=== PATIENT | female | born 1975 | race Caucasian/White ===

== ENCOUNTER 2017-09-21 10:00 | Outpatient (RCR) | payer MEDICAID, SELFPAY ==
--- NOTE | 2017-08-29 11:08 | HP.PTEVAL ---
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 Date of Evaluation: 08/29/17 Physical Therapist: Jr Aden, PT, - Visit Plan Frequency: 2-3x /Week Duration: 4-6 Weeks Plan: Trial C-Tx next Rx. Postural EDU, c/s retaction ex's, DTR, scap stab ex's, UBE, and HEP - Subjective Subjective: Pt reports she has had severe pain in between her shoulder blades for a couple months now. Pt reports she was lifting her mattress a couple months ago when it fell on her. Pt reports she didn't have immediate pain from that, but believes that incident may be what has lead her to having this pain. Pt reports she is raising her 4 y/o nephew, and has a hard time picking him up as a result. Pt is R hand dominant. Pt reports her pain is often times more sore in the morning. Pt also notes reaching for objects causes her to have pain. Nothing helps to alleviate pain except for Ibuprophen. No PMHx of T/S pain. No recent Dx tests at this time. No sleep diff secondary to pain. 7/10 pain at rest, 9/10 at worst (reaching for objects) - Pain Upper T/S Pain Intensity (Out of 10): 7 Pain Intensity Range: 9 - Objective Neuro: B UE sensation is WNL to light touch. B bicepital reflex= 2/3. Palpation: Pt has sig guarding in her C/S. No pain in T/S. ROM: C/S ROM is WNL except for retraction and ext which are severely limited. MMT: B C7 myotome 3/5. all other B UE MMT 5/5 throughout. Repeated movements C/S: RPIS 10x3 NE, RRIS 10x3 provokes centralized pain. Special testing: Pos c/s compression test and distraction test - Goals Goal 1:: Decrease C/S and upper back pain x 50% to aid with IADL's Goal Time Frame: 4-6 Weeks Goal 2:: Pt will demonstrate both verbally and physically proper posture to aid with preventing future neck and upper back pain Goal Time Frame: 4-6 Weeks Goal 3:: Increase C/S ext and retraction ROM to WNL to aid with restoring proper posture. Goal Time Frame: 4-6 Weeks Goal 4:: I with HEP Goal Time Frame: 4-6 Weeks - Rehabilitation Potential Physical Therapy Diagnosis: Pt has neck pain, upper back pain, and limited c/s ROM secondary to c/s disc derrangement Rehabilitation Potential: Good - Anticipated Interventions Patient/Client Instruction: Educate patient on: Condition, Plan of Care For the Purpose of:: To improve self management Therapeutic Exercise to Include: Strength training, Body mechanics, Postural training, Active ROM, Pam Exercises, Scapular Strength/Stabilization For the Purpose of:: To decrease pain, To increase ROM, To improve muscle performance and motor function Manual Therapy Techniques to Include: Soft tissue mobilization For the Purpose of:: To decrease pain Intermittent cervical traction: Yes For the Purpose of:: To decrease pain Thank you for the opportunity to evaluate your patient. For Medicare and Medicare HMO plans, please review the plan of care and approve it. It will need to be FAXED BACK to us at [phone] for Medicare purposes. Please let me know if there are questions or concerns regarding this plan of care. Physician Signature: Date:
--- NOTE | 2017-09-21 10:22 | HP.PTDCSUM_ITS ---
HP - PT D/C Summary It has been my pleasure to treat JIMY THEODORE under orders from [facility] Power NP.JWITME for the diagnosis of Upper back pain for a total of 7 visit(s) . Discharge Date: Please see the following information for a summary of their discharge status. - Subjective Subjective: I feel great today, my pain is almost gone - Pain Upper T/S Pain Intensity (Out of 10): 1 - Objective Objective/Function: Pt now has full ROM in C/S. No pain after Rx. Pt I with postural awareness. Rx goals achieved - Goals Goal 1:: Decrease C/S and upper back pain x 50% to aid with IADL's Goal 2:: Pt will demonstrate both verbally and physically proper posture to aid with preventing future neck and upper back pain Goal 3:: Increase C/S ext and retraction ROM to WNL to aid with restoring proper posture. Goal 4:: I with HEP - Plan Plan: Discharge - D/C Information If there are questions or concerns regarding this patient's physical therapy, please feel free to call me at [phone]. Thank you for the referral of this patient. Sincerely, Jr Aden, PT,
== END 2017-09-21 10:52 | disposition home or self-care (01) ==
LOC: PT 10:00
PROVIDERS: Family Provider Family Medicine; PCP Family Medicine; Visit Provider Nurse Practitioner Primary Care
DX: M54.89 Other dorsalgia (principal)
CPT/HCPCS: 97012; 97161

== ENCOUNTER → 2017-11-28 12:28 | Outpatient (CLI) | payer MEDICAID, SELFPAY ==
--- NOTE | 2017-11-28 12:28 | DT_ITS ---
This patient was seen during an EMR downtime November 28, 2017 - December 05, 2017. This patient may have a combination of paper and electronic documentation or all paper documentation. All documentation is viewable within the e-chart portion of [facility] for each patient visit.
--- NOTE | 2017-11-28 12:50 | BI_ITS ---
MAMMOGRAPHY - BILATERAL SCREENING REASON FOR EXAM: Female, 42 years old. Routine annual screening examination. PERTINENT HISTORY: NO FAM HX RT NEEDLE BX 2016 TECHNIQUE: Digital bilateral breast krzysztof (3D mammographic acquisition) in the CC and MLO projections. 2-D mediolateral oblique (MLO) and craniocaudad (CC) views of both breasts were obtained. CAD: Full Field Digital Mammography with Computer Added Detection was performed. COMPARISON: 05/04/2016 and 10/21/2015 and April 11, 2015 FINDINGS: Breast Composition: The breasts are heterogeneously dense, which may obscure small masses. There are no dominant masses or suspicious calcifications. No other significant abnormalities are identified. BI/SCREENING MAMM (CAD), BILAT IMPRESSION: Stable bilateral screening mammogram. Yearly follow-up mammogram recommended. (A) ASSESSMENT CATEGORY: BIRADS Category 2: Benign. A letter regarding these results will be sent to the patient by the facility within 30 days. Approximately 10% of breast cancers are not detected by mammography. A normal mammogram should not delay biopsy of a clinically suspicious abnormality. [id number] Electronically Signed: Eran Jj MD at 12:13 EDT Tel , Service support ,
== END ==
PROVIDERS: Family Provider Family Medicine; PCP Family Medicine; Visit Provider Obstetrics & Gynecology
DX: Z12.31 Encounter for screening mammogram for malignant neoplasm of breast (principal)
CPT/HCPCS: 77062; 77063; 77067; G0279

== ENCOUNTER 2019-04-03 17:15 | Emergency (ER) | payer MEDICAID, SELFPAY ==
[2019-04-03 17:17] VITALS: BP 200/99; PULSE 111; RESP 16; TEMP 36.4; O2SAT 98; BMI 39.0
[2019-04-03 18:19] LABS: Amphetamine Urine VISTA NEGATIVE (<1000 ng/mL); Barbiturate Urine VISTA NEGATIVE (< 200 ng/mL); Benzodiazepine Urine VISTA NEGATIVE (< 200 ng/mL); Cocaine Urine VISTA NEGATIVE (< 300 ng/mL); Ecstacy Urine VISTA NEGATIVE (< 500 ng/mL); Methadone Urine VISTA NEGATIVE (< 300 ng/mL); PCP Urine VISTA NEGATIVE (< 25 ng/mL); THC Urine VISTA NEGATIVE (< 50 ng/mL); Vista UDS pH Range 5
[2019-04-03 19:00] VITALS: RESP 17
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
[2019-04-03 19:10] LABS: Absolute Lymphocyte Count 1.33 X10^3/uL (0.83-4.51); Absolute Neutrophil Count 4.5 X10^3/uL (2.0-7.7); Basophil# 0.05 X10^3/uL; Basophil% 0.8 % (0-1); Eosinophils% 1.5 % (0-5); Hematocrit 38.6 % (37-47); Hemoglobin 13.5 g/dL (12.0-15.0); Lymphocyte # 1.33 X10^3/ul (4.0); Lymphocyte % 20.5 % (19-41); Mean Corpuscular Hgb 29.9 pg (27.0-32.0); Mean Corpuscular Volume 85.4 fL (81-99); Mean Platelet Vol. 11.4 fl (6.2-12.0); Monocyte# 0.45 X10^3/uL; Monocyte% 6.9 % (0-10); NRBC Flagged by Analyzer 0 % (0-5); Neutrophil # 4.52 X10^3/uL (2.7-7.7); Neutrophil % 69.5 % (47-70); Platelet Count 159 K/mm3 (150-450); RBC Distribution Width CV 12.7 % (11.6-14.6); Red Blood Count 4.52 M/mm3 (4.2-5.4); White Blood Count 6.5 K/mm3 (4.4-11.0)
[2019-04-03] MEDS: Acetaminophen 500 MG Tablet 1000 MG PO (19:12)
[2019-04-03 19:20] LABS: ALB/GLOB Ratio 1.2 RATIO (0.9-2.4); AST(SGOT) 14 U/L (15-37); Alanine Aminotransfer ALT/SGPT 32 U/L (13-56); Albumin, Serum 4.2 g/dL (3.2-5.0); Alkaline Phosphatase 113 U/L (45-117); Anion Gap 8 (5-15); BUN 16 mg/dL (7-18); Calcium,Total 9.3 mg/dL (8.5-10.1); Chloride 104 mmol/L (98-107); EST Glomerular Filtration Rate 83 mL/min (>60); Est Glom Filt Rate - Afr Amer 100 mL/min (>60); Estimated Creatinine Clearance 64.46 ml/min; Globulin 3.5 g/dL (2.2-4.2); Glucose 161 mg/dL (74-106); Potassium 3.7 mmol/L (3.5-5.1); Protein, Total 7.7 g/dL (6.4-8.2); Sodium Level 137 mmol/L (136-145)
[2019-04-03 19:21] LABS: Internal QC Validated? YES +Cl - CLEAR BKGD; Pregnancy, Serum, hCG Quali. NEGATIVE Negative
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
[2019-04-03 19:35] VITALS: BP 165/106; PULSE 98; RESP 16; O2SAT 99
--- NOTE | 2019-04-03 19:59 | CM.ED ---
Social Work Patient medically cleared per Dr. Young. Telephone call to [facility], they do not accept patient insurance Telephone call to [facility]. They have openings and they do accept patient insurance. Referral faxed. Pending approval. Lang ELIZABETH, MARY
[2019-04-03 20:00] VITALS: RESP 16
--- NOTE | 2019-04-03 20:40 | CM.ED ---
Social Work Telephone call to [facility], Dior. This social security assessor updating Dior on concerns of patient being in the home with 6 year old nephew when patient was thinking about completing suicide and hoping that patient would . Dior updated that patient nephew is currently at patient friends, Kats as well as the address and contact information for Heather. Rader stating that there are no open cases at this time and that the report will go to be reviewed. Lang ELIZABETH, MARY
--- NOTE | 2019-04-03 20:44 | CM.ED ---
Social Work Telephone call from [facility]. Patient has been accepted. Nurse to nurse report: [phone]. Unit: Adult unit 1700. Accepted by Dr. Crum. Update patient and medical team. All agreeable with plan. [place] slip faxed. Lang lOea BOX SEALING MACHINE OPERATOR, MARY
[2019-04-03 21:00] VITALS: RESP 17
--- NOTE | 2019-04-03 21:22 | ED.RN ---
DISPO CHARTED BY CHRISTI NOT ABAILY.
== END 2019-04-03 22:02 ==
PROVIDERS: Emergency Provider Emergency Medicine
DX: R45.851 Suicidal ideations (principal); I10 Essential (primary) hypertension; S50.812A Abrasion of left forearm, initial encounter; X78.9XXA Intentional self-harm by unspecified sharp object, initial encounter; Y93.9 Activity, unspecified; Y92.9 Unspecified place or not applicable; F32.9 Major depressive disorder, single episode, unspecified; F41.9 Anxiety disorder, unspecified; E11.9 Type 2 diabetes mellitus without complications; E78.00 Pure hypercholesterolemia, unspecified; Z79.84 Long term (current) use of oral hypoglycemic drugs; Z79.899 Other long term (current) drug therapy; Z87.891 Personal history of nicotine dependence
CPT/HCPCS: 80053; 80307; 80320; 84703; 85025; 99284; G0480

== ENCOUNTER → 2019-12-06 09:13 | Outpatient (CLI) | payer MEDICAID, SELFPAY ==
--- NOTE | 2019-12-06 14:15 | PFTCOMP_ITS ---
COMPLETE PULMONARY FUNCTION TEST INTERPRETATION Brief HPI: Patient is a 44 year old female, currently under the care of Dr. Rolon, who presents to [facility] for complete pulmonary function tests secondary to diagnosis of wheezing. Respiratory therapist reports good effort and reproducible results. Interpretation: Forced expiration spirometry shows no large airways obstructive ventilatory defect with an FEV1 of 81% predicted. There is no significant bronchodilator response by strict ATS criteria. Spirograms are of good quality and plateau normally. The respiratory flow volume loop shows a normal pattern. Lung volumes by body plethysmography show a slightly reduced total lung capacity at 3.23 L, 77% predicted. All other lung volumes are reduced symmetrically. Diffusion capacity by carbon monoxide is slightly reduced at 73% predicted. The airway resistance is slightly elevated. No previous pulmonary function tests were available for review. Impression: Mild restrictive ventilatory defect with a symmetric reduction diffusion c apacity.
== END ==
PROVIDERS: PCP Nurse Practitioner Family; Referring Provider Nurse Practitioner Family; Visit Provider Nurse Practitioner Family
DX: J20.9 Acute bronchitis, unspecified (principal); R06.02 Shortness of breath; R06.2 Wheezing
CPT/HCPCS: 94060; 94726; 94729

== ENCOUNTER → 2020-02-26 14:47 | Outpatient (CLI) | payer MEDICAID, SELFPAY ==
[2020-01-21 08:48] VITALS: BMI 39.0
--- NOTE | 2020-02-26 14:47 | BI_ITS ---
MAMMOGRAPHY - BILATERAL DIAGNOSTIC REASON FOR EXAM: Female, 44 years old. History of bilateral breast nodules seen on the recent CT scan examination. Remote right needle breast biopsy. PERTINENT HISTORY: Non-contributory. TECHNIQUE: Digital bilateral breast krzysztof (3D mammographic acquisition) in the CC and MLO projections. 2-D mediolateral oblique (MLO) and craniocaudad (CC) views of both breasts were obtained. CAD: Full Field Digital Mammography with Computer Added Detection was performed. COMPARISON: Comparison is made with prior examination dated 11/28/2017. FINDINGS: Breast Composition: There are scattered areas of fibroglandular density. There are no dominant masses or suspicious calcifications. Stable 6.3 mm well-defined nodule in the upper axillary region of the right breast most likely representing a small lymph node. Stable small bilateral benign appearing axillary lymph nodes. Tissue markers are seen in both breasts from prior biopsy. No other significant abnormalities are identified. There has been no significant change since the prior study. BI/DIAG MAMM W/CAD, BILAT IMPRESSION: Stable bilateral diagnostic mammogram. One year follow-up recommended. (A) ASSESSMENT CATEGORY: BIRADS Category 2: Benign. A letter regarding these results will be sent to the patient by the facility within 30 days. Approximately 10% of breast cancers are not detected by mammography. A normal mammogram should not delay biopsy of a clinically suspicious abnormality. Electronically Signed: Shaji Payne, at 8:44 EDT , Service support ,
--- NOTE | 2020-02-26 16:11 | US_ITS ---
STUDY: ULTRASOUND BREAST - RIGHT REASON FOR EXAM: Female, 44 years old. History of bilateral breast nodules. TECHNIQUE: Axial and longitudinal images of the RIGHT breast were performed with a high resolution ultrasound transducer. # OF IMAGES: 82 COMPARISON: Comparison is made with prior mammogram done earlier today. FINDINGS: RIGHT Breast: There is a 1 cm x 0.9 cm x 0.5 cm well-defined hypoechoic nodule at the 5 o''clock position of the breast at 3 cm from nipple. This most likely represents a fibroadenoma. Tissue diagnosis is recommended. IMPRESSION: There is a 1 cm x 0.9 cm x 0.5 cm well-defined hypoechoic nodule at the 5 o''clock position of the breast at 3 cm from nipple. Tissue diagnosis is recommended. ASSESSMENT CATEGORY: BIRADS Category 4: Suspicious - Biopsy Should Be Considered. A letter regarding these results will be sent to the patient by the facility within 30 days. Electronically Signed: Shaji Payne, at 9:15 EDT , Service support , STUDY: ULTRASOUND BREAST - LEFT REASON FOR EXAM: Female, 44 years old. Bilateral breast nodules. TECHNIQUE: Axial and longitudinal images of the LEFT breast were performed with a high resolution ultrasound transducer. # OF IMAGES: 82 COMPARISON: Comparison is made with prior examination done earlier in the day. FINDINGS: LEFT Breast: There is a 5 mm x 7 mm x 5 mm well-defined echogenic nodule in the superficial aspect of the breast at the 12 o''clock position of the breast at 3 cm from the nipple. This most likely represents a lipoma. US/Breast Limited Unilateral IMPRESSION: 5 mm x 7 mm x 5 mm well-defined echogenic nodule in the superficial aspect of the breast at the 12 o''clock position at 3 cm from nipple. This most likely represents a lipoma. ASSESSMENT CATEGORY: BIRADS Category 2: Benign. A letter regarding these results will be sent to the patient by the facility within 30 days. Electronically Signed: Shaji Payne, at 9:17 EDT , Service support ,
== END ==
PROVIDERS: PCP Nurse Practitioner Family; Referring Provider Obstetrics & Gynecology; Visit Provider Nurse Practitioner Family
DX: R92.2 Inconclusive mammogram (principal)
CPT/HCPCS: 76642; 77062; 77066; G0279

== ENCOUNTER → 2020-03-07 09:51 | Outpatient (CLI) | payer MEDICAID, SELFPAY ==
[2020-03-04 09:45] VITALS: BMI 39.0
--- NOTE | 2020-03-07 09:54 | US_ITS ---
STUDY: ULTRASOUND BREAST - RIGHT REASON FOR EXAM: Female, 44 years old. Right breast biopsy. TECHNIQUE: Axial and longitudinal images of the RIGHT breast were performed with a high resolution ultrasound transducer. # OF IMAGES: 19 COMPARISON: Comparison is made with prior ultrasound of the right breast dated 02/26/2020. FINDINGS: RIGHT Breast: The surgeon performed core biopsies of the 1.1 cm x 1.1 cm x 0.5 cm hypoechoic nodular density at the 5 o''clock position of the breast at 3 cm from nipple. US/US Breast Biopsy 1st Lesion IMPRESSION: Ultrasound guided core biopsy of the 1.1 cm x 1.1 cm x 0.5 cm hypoechoic solid nodule at the 5 o''clock position of the breast at 3 cm from the nipple. ASSESSMENT CATEGORY: BIRADS Category 2: Benign. A letter regarding these results will be sent to the patient by the facility within 30 days. Electronically Signed: Shaji Payne, at 11:10 EDT , Service support ,
--- NOTE | 2020-03-07 10:30 | BRBX_PTH ---
PATIENT: JIMY THEODORE LOC: OPUS U#:[id number] AGE/SX: 49/F ROOM: RE03/07/[address]: Dr. Corby Dickson MD : 1975 BED: DIS: SPEC #: [id number] RECD: 03/07/20 11:06 STATUS: LOU ARMANI #: [id number] ALICIA: 03/07/20 10:[address]: Corby Dickson DEPT: SURGICAL PATHOLOGY RECD BY: Tesfaye Pal ENTERED: 03/07/20 12:52 SP TYPE: BREAST BX OTHR DR: George Hopper, TICKETING CLERK-C Tissues: Right breast, NOS Procedures: Surgery Specimen Level IV HEADER OPERATION: Ultrasound-guided biopsy, right breast PRE-OP DIAGNOSIS: Right breast nodule TISSUE SUBMITTED: Right breast nodule ISCHEMIC TIME: 1 minute FIXATION TIME: 57 hours MICROSCOPIC DIAGNOSIS Right breast nodule, ultrasound-guided needle core biopsy: Fibroadenoma. Mild fibrocystic change. AM:liane 03/10/20 MICROSCOPIC DESCRIPTION Slides are reviewed. GROSS DESCRIPTION Received in fixative is one container labeled with the patient name and designated right breast. The specimen consists of multiple elongated fragments of malin-yellow fibroadipose tissue that in aggregate measure 2 x 1.5 x 0.1 cm. The entire specimen is submitted in one cassette. / SJ:liane 03/07/20 TC:5 CPT: 91014
--- NOTE | 2020-03-07 10:35 | BI_ITS ---
MAMMOGRAPHY - UNILATERAL DIAGNOSTIC: RIGHT BREAST REASON FOR EXAM: Female, 44 years old. Tissue marker placement following ultrasound-guided breast biopsy. PERTINENT HISTORY: Non-contributory. TECHNIQUE: Digital unilateral breast krzysztof (3D mammographic acquisition) in the CC and MLO projections. 2-D mediolateral oblique (MLO) and craniocaudad (CC) views of both breasts were obtained. CAD: Full Field Digital Mammography with Computer Added Detection was performed. COMPARISON: Comparison is made with prior examination dated 02/26/2020. FINDINGS: Breast Composition: There are scattered areas of fibroglandular density. A new tissue clip marker is seen in the central slightly medial aspect of the right breast. No other significant abnormalities are identified. BI/DIAG MAMM W/CAD, UNILAT IMPRESSION: Status post right ultrasound-guided breast biopsy with a tissue clip marker placement in the deep central slightly medial aspect of the right breast. ASSESSMENT CATEGORY: BIRADS Category 2: Benign. A letter regarding these results will be sent to the patient by the facility within 30 days. Approximately 10% of breast cancers are not detected by mammography. A normal mammogram should not delay biopsy of a clinically suspicious abnormality. Electronically Signed: Shaji Payne, at 11:56 EDT , Service support ,
--- NOTE | 2020-03-07 12:39 | PCM.OPRPT ---
Problem List (1) Abnormal mammogram of right breast Status: Acute Report of Operation Date of Procedure: 03/07/20 Pre-Operative Diagnosis: Abnormal mammogram to right breast Post-Operative Diagnosis: Same Surgery/Procedure Performed:: Ultrasound-guided handheld mammotome breast biopsy right breast Type of Anesthesia:: Local Description of Procedure: Patient was brought into the ultrasound room. Ultrasound of the right breast revealed the lesion in question. The area was of the lower half of the breast. I marked the breast cleaned the breast off with chlorhexidine solution. 1% lidocaine plain was injected. Local was injected posterior to the lesion. A skin mio was made. Hand-held needle was then directed posterior to the lesion. Numerous biopsies were obtained under ultrasound guidance. Under ultrasound guidance a small titanium clip was placed. Steri-Strips were applied sterile dressings were applied and the patient tolerated the procedure well. - Admit VTE Documentation VTE Present on Admission: No VTE Mechan Device Prophylaxis: None VTE Pharm Prophylaxis ordered?: No Reason prophylaxis not ordered:: Treatment Not Indicated [id number]: [id number] Bx breast 1st lesion us imag
== END ==
PROVIDERS: PCP Nurse Practitioner Family; Referring Provider Surgery; Visit Provider Surgery
DX: D24.1 Benign neoplasm of right breast (principal); N60.11 Diffuse cystic mastopathy of right breast
CPT/HCPCS: 19083; 77065; 88305

== ENCOUNTER 2023-06-27 14:26 | Emergency (ER) | payer MEDICARE, MEDICAID, SELFPAY ==
[2023-06-27 14:26] VITALS: BP 171/80; PULSE 85; RESP 16; TEMP 36.6; O2SAT 96; BMI 41.6
--- NOTE | 2023-06-27 14:38 | EDS_ITS ---
HPI History of Present Illness Chief Complaint: Cough Informant: patient Onset/Context/Timing Onset: Days (8 days) Narrative Narrative: Patient presents secondary to cough since . She states she initially had sinus congestion that is now improved. She has not had fever or chills. She has had some intermittent wheezing and has been using her inhalers more than normal. She was exposed to her father who was diagnosed with COVID. She took a home COVID test 2 days ago that was negative. [facility] Medical History (Updated 06/27/23 @ 15:[address] Cassandra Benoit MD) Anxiety and depression COPD (chronic obstructive pulmonary disease) Diabetes GERD (gastroesophageal reflux disease) History of hypertension Home Medications prazosin 1 mg capsule 5 mg PO DAILY 01/27/17 [History Last Taken Unknown] amitriptyline 25 mg tablet 25 mg PO QHS 04/03/19 [History Last Taken Unknown] buspirone 7.5 mg tablet 7.5 mg PO TID 04/03/19 [History Last Taken Unknown] ergocalciferol (vitamin D2) 1,250 mcg (50,000 unit) capsule 1 cap PO QWEEK 04/03/19 [History Last Taken Unknown] lovastatin 20 mg tablet 20 mg PO DAILY 04/03/19 [History Last Taken Unknown] metformin 500 mg tablet,extended release 24 hr 500 mg PO DAILY 04/03/19 [History Last Taken Unknown] tizanidine 4 mg tablet 4 mg PO TID PRN Muscle Spasm 04/03/19 [History Last Taken Unknown] venlafaxine 150 mg capsule,extended release 24 hr 150 mg PO DAILY 04/03/19 [History Last Taken Unknown] insulin glargine 100 unit/mL (3 mL) subcutaneous pen (Lantus Solostar U-100 Insulin) 50 unit subcut QPM 01/21/20 [History Last Taken Unknown] valsartan 80 mg-hydrochlorothiazide 12.5 mg tablet 1 tab PO DAILY 01/21/20 [History Last Taken Unknown] Allergy/AdvReac Type Severity Reaction Status Date / Time Iodinated Contrast Media Allergy Severe difficulty Verified 06/27/23 14:27 [CONTRASTS] breathing Family History Mother Heart disease Myocardial infarction Hypertension Aunt Colon cancer Uncle Cancer lung Surgical History H/O bilateral oophorectomy History of bilateral breast biopsy S/P LINDA (total abdominal hysterectomy) Social History Smoking Status: Former smoker alcohol intake: never substance use type: does not use caffeine: Yes what type of physical activity do you participate in: walking seatbelt use: sometimes do you feel safe at home: Yes additional social history: - Unemployed ROS ROS ED Constitutional Constitutional ED: Denies chills or fever(s) Eyes Eyes: Denies discharge from eye(s) ENT ENT ED: Denies discharge from eye(s), rhinorrhea or sore throat Cardiovascular Cardiovascular: Denies chest pain or palpitations Respiratory/Chest Respiratory/Chest: Reports cough; Denies dyspnea Gastrointestinal Gastrointestinal: Denies abdominal pain, diarrhea, nausea or vomiting Genitourinary Genitourinary ED: Denies dysuria Musculoskeletal Musculoskeletal: Denies back pain or extremity pain Integumentary Denies Abrasions or rash Neurologic Neurologic: Denies headache(s) or weakness Psychiatric Psychiatric: Denies anxiety or depression Allergic/Immunologic Allergic/Immunologic ED: Denies lip swelling or urticaria EXAM Physical Exam Const Vital Signs: 06/27/23 14:26 06/27/23 15:00 06/27/23 15:26 Temperature 97.9 F Temperature Source Temporal Pulse Rate 85 Respiratory Rate 16 16 Respiratory Effort Normal Non-Labored Respiratory Pattern Normal Blood Pressure 171/80 H Blood Pressure Mean 110 Pulse Ox 96 Oxygen Delivery Method Room Air Positive well nourished and well developed General Appearance ED: well developed Eyes EOMs intact bilaterally Chest Wall inspection of chest normal and palpation of chest normal Resp normal respiratory effort and clear to auscultation bilaterally Cardio regular rate and regular rhythm GI non-tender Palpation: soft Extremity normal to inspection Neuro oriented x3 and no sensory deficits noted Motor Exam: strength 5/5 throughout Psych mental status grossly normal Skin no rashes or lesions noted MDM MDM MDM Narrative Medical decision making narrative: Given the patient's history of COPD with prolonged cough I will obtain chest x- ray to evaluate for possible infiltrate. Swab for COVID and influenza also sent. Patient swab for COVID and influenza is negative. Two-view chest x-ray per my interpretation reveals no evidence of focal infiltrate. Radiology interpretation reviewed and agrees. Patient did have known exposure to COVID and her sister who is also here being seen does test positive today. I think she likely did have COVID but is already cleared her infection quicker as she has had her symptoms longer. She is doing well and is not hypoxic on room air. Her chest x-ray is clear. She will continue supportive care. Radiography Diagnostic Testing: Clinical Impression(s) from Imaging Studies Chest X-Ray 06/27/23 14:50 IMPRESSION: Normal x-ray examination of the chest. Electronically Signed: Donte Dangelo MD at 15:11 EST , Discharge Plan Triage Chief Complaint: Cough ED Provider: Cassandra Benoit Dx/Rx/DC Orders Clinical Impression: Viral syndrome Instructions: ED Viral Syndrome (Adult) Prescriptions: No Action valsartan-hydrochlorothiazide 80-12.5 mg tablet 1 tab PO DAILY Lantus Solostar U-100 Insulin 100 unit/mL (3 mL) insulin pen 50 unit SC QPM prazosin 1 MG capsule 5 mg PO DAILY venlafaxine 150 MG capsule,extended release 24hr 150 mg PO DAILY amitriptyline 25 MG tablet 25 mg PO QHS Patient Comments: take 1 tablet by mouth at bedtime buspirone 7.5 MG tablet 7.5 mg PO TID Patient Comments: take 1 tablet by mouth three times a day ergocalciferol (vitamin D2) 50,000 UNIT capsule 1 cap PO QWEEK Patient Comments: take 1 capsule by mouth every week lovastatin 20 MG tablet 20 mg PO DAILY metformin 500 MG tablet extended release 24 hr 500 mg PO DAILY Patient Comments: take 1 tablet by mouth once daily tizanidine 4 MG tablet 4 mg PO TID PRN (Reason: Muscle Spasm) Patient Comments: take 1 tablet by mouth three times a day Primary Care Provider: George Hopper NP Referrals: George Hopper NP, [employer] [facility] [Primary Care Provider] - 1-2 Weeks Disposition Disposition: Home, Self Care
--- NOTE | 2023-06-27 14:50 | RAD_ITS ---
STUDY: X-RAY CHEST REASON FOR EXAM: Female, 47 years old. Cough. COPD. TECHNIQUE: Frontal and lateral views of the chest. COMPARISON: None. FINDINGS: The lungs are clear and expanded. There is no demonstrated pleural abnormality. Normal size heart. Normal mediastinum and brenton. Normal visualized pulmonary arteries. Normal visualized aortic arch and descending thoracic aorta. Normal visualized thoracic spine. Normal visualized ribs, clavicles, and shoulders. No abnormality of the visualized soft tissue structures of the upper abdomen. RAD/Chest PA and Lateral IMPRESSION: Normal x-ray examination of the chest. Electronically Signed: Donte Dangelo MD at 15:11 EST ,
[2023-06-27 15:00] VITALS: RESP 16
--- OUTSIDE RECORDS SUMMARY | 2023-06-27 15:12 | XMS RPT_ITS | CCD ---
Author Name Unknown Address [address] [place] [address] Organization [facility] Care Team Providers Care Carpentry Specialist Name Role Phone Bernadine Nicholas MD Unavailable [phone] Olivia Rick Unavailable Unavailable Matteo Pena Unavailable Unavailable MISCELLANEOUS DOCTOR Unavailable Unavailable Unavailable Primary Care Provider Aarti e DIANA BLUE LINE TRIMMER - FURNITURE RENTAL CONSULTANT, NIGHAT Lopez Primary Care Phys ician Radha PT, Kate Unavailable Unavailable DIANA BLUE LINE TRIMMER - FURNITURE RENTAL CONSULTANT, NIGHAT Lopez Primary Care U navailable FROMMELT DO, BANDAR Attending Unavailable GO BLUE LINE TRIMMER-FURNITURE RENTAL CONSULTANT, ANTONY Attending Unavaila ble DIANA BLUE LINE TRIMMER - FURNITURE RENTAL CONSULTANT, NIGHAT Lopez Primary Care U navailable DIANA BLUE LINE TRIMMER - FURNITURE RENTAL CONSULTANT, NIGHAT Lopez Attending U navailable DIANA BLUE LINE TRIMMER - FURNITURE RENTAL CONSULTANT, NIGHAT Lopez Primary Care U navailable GO BLUE LINE TRIMMER-FURNITURE RENTAL CONSULTANT, ANTONY Attending Unavaila ble DIANA BLUE LINE TRIMMER - FURNITURE RENTAL CONSULTANT, NIGHAT Lopez Primary Care U navailable DIANA BLUE LINE TRIMMER - FURNITURE RENTAL CONSULTANT, NIGHAT Lopez Primary Care U navailable GO BLUE LINE TRIMMER-FURNITURE RENTAL CONSULTANT, ANTONY Attending Unavaila ble GO BLUE LINE TRIMMER-FURNITURE RENTAL CONSULTANT, ANTONY Attending Unavaila ble DIANA BLUE LINE TRIMMER - FURNITURE RENTAL CONSULTANT, NIGHAT Lopez Primary Care U navailable DIANA BLUE LINE TRIMMER - FURNITURE RENTAL CONSULTANT, NIGHAT Lopez Primary Care U navailable GO BLUE LINE TRIMMER-FURNITURE RENTAL CONSULTANT, ANTONY Attending Unavaila ble DIANA BLUE LINE TRIMMER - FURNITURE RENTAL CONSULTANT, NIGHAT Lopez Attending U navailable DIANA BLUE LINE TRIMMER - FURNITURE RENTAL CONSULTANT, NIGHAT Lopez Primary Care U navailable DIANA BLUE LINE TRIMMER - FURNITURE RENTAL CONSULTANT, NIGHAT Lopez Primary Care U navailable DIANA BLUE LINE TRIMMER - FURNITURE RENTAL CONSULTANT, NIGHAT Lopez Attending U navailable DIANA BLUE LINE TRIMMER - FURNITURE RENTAL CONSULTANT, NIGHAT Lopez Primary Care U navailable DIANA BLUE LINE TRIMMER - FURNITURE RENTAL CONSULTANT, NIGHAT D Attending U NIGHAT Rollins APRN, CNP Primary Care U NIGHAT Rollins APRN, CNP Attending U NIGHAT Rollins APRN, CNP Primary Care U JUAQUIN Guadarrama DO Attending Unavailable Allergies Allergy Classification Reported Allergen(s) Allergy Type Date of Onset Reaction(s) Facility (4 sources) Contrast media drug allergy 05-20-20 17 Lung filled uo with fluid [facility] (1 source) Shellfish Propensity to adverse reactions to drug 08-07-19 13 Anaphylaxis [place] (1 source) Iodides Propensity to adverse reactions to drug 02-05-20 20 Anaphylaxis [place] (17 sources) Contrast dye 1; Translations: [iodinated radiocontrast agents] Drug allergy Lungs fill up with fluid [facility] Medications Current Medications Medication Drug Class(es) Dates Sig (Normalized) Sig (Original) acetaminophen 500 mg oral tablet (2 sources) Start: 06-08-2021 End: 06-18-2021 Tylenol Extra Strength 500 mg oral tablet Dose : 1,000 mg = 2 tab(s), Oral, q6hr, PRN FEVER, X 10 day(s), # 80 tab(s), 0 Refill(s), 06/18/21 15:22:00 EST, [id number], 150, cm, 06/08/21 14:43:00 EST, Height, kg, 06/08/21 14:43:00 EST, Dosing Weight Start Date: 06/08/21 Stop Date: 06/18/21 Status: Ordered Completed/Discontinued Medications Medication Drug Class(es) Dates Sig (Normalized) Sig (Original) [id number] 200 actuat albuterol 0.09 mg/actuat metered dose inhaler (18 sources) beta2-Adrenergic Agonist Start: 05-13-2022 End: 05-10-2023 take 2 puff(s) by inhalation every six hours as needed ProAir HFA MDI (90 mcg/inh) inhalation aerosol 2 puff(s), Inhalation, q6hr, PRN, # 1 EA, 5 Refill(s), Pharmacy: [facility] - [id number], COPD - Chronic obstructive pulmonary disease, 153, cm, 11/11/22 14:54:00 EDT, Height, kg, 11/11/22 14:54:00 EDT, Dosing Weight Start Date: 11/11/22 Stop Date: 05/10/23 Status: Ordered Problems Active Problems Problem Classification Problem Date Documented Da te Episodic/Chronic Anxiety disorders (20 sources) Mixed anxiety and depressive disorder; Translations: [Posttraumatic stress disorder] Onset: 05-20-2017 05-20-2017 Chronic Cancer of uterus (4 sources) Malignant neoplasm of endometrium; Translations: [Malignant neoplasm of endometrium] Onset: 05-20-2017 05-20-2017 Chronic Cancer of uterus (20 sources) History of malignant neoplasm of endometrium; Translations: [History of malignant neoplasm of uterine body] 04-17-2020 Episodic Past or Other Problems Problem Classification Problem Date Documented Da te Episodic/Chronic Suicide and intentional self-inflicted injury (1 source) Suicidal thoughts; Translations: [Suicidal ideation] Onset: 04-04-2017 04-04-2017 Episodic Unclassified (1 source) K21.9 Onset: 02-01-2018 Results Test Name Value Interpretation Reference Range Facil ity Vital Signs Date Time Vital Sign Value Performing Clinician Faci lity 02-23-2023 17:34-0400 Body height 152.4 cm BANDAR [employer] [facility] 02-23-2023 17:34-0400 Body temperature 98.78 [degF] BANDAR MEDINAAppy [employer] [facility] 02-23-2023 17:34-0400 Body weight 97.3 kg BANDAR [employer] [facility] 02-23-2023 17:34-0400 Diastolic Blood Pressure Non-Invasive 93 1 BANDAR [employer] [facility] 02-23-2023 17:34-0400 Heart rate 90 /min BANDAR [facility] 02-23-2023 17:34-0400 Respiratory rate 18 /min BANDAR PEDRAZA DO [facility] 02-23-2023 17:34-0400 Systolic Blood Pressure Non-Invasive 147 1 BANDAR PEDRAZA DO [facility] 02-05-2023 11:27-0400 Blood Pressure Location JUAQUIN FERNANDES DO [facility] 02-05-2023 11:27-0400 Body temperature 98.6 [degF] JUAQUIN FERNANDES DO [facility] 02-05-2023 11:27-0400 Diastolic Blood Pressure Non-Invasive 103 1 JUAQUIN FERNANDES [employer] [facility] 02-05-2023 11:27-0400 Heart rate 90 /min JUAQUIN FERNANDES [employer] [facility] 02-05-2023 11:27-0400 Respiratory rate 16 /min JUAQUIN FERNANDES [employer] [facility] 02-05-2023 11:27-0400 Systolic Blood Pressure Non-Invasive 156 1 JUAQUIN FERNANDES [employer] [facility] 02-06-2020 11:38-0400 Pulse Oximetry 97 % [place] 02-06-2020 11:38-0400 Respiratory Rate 18 /min [employer] [place] 02-06-2020 09:59-0400 Body Temperature 98.01 [degF] [employer] [place] 02-06-2020 09:59-0400 BP Diastolic 93 mm[Hg] [place] 02-06-2020 09:59-0400 BP Systolic 139 mm[Hg] [place] 02-06-2020 09:59-0400 Pulse (Heart Rate) 90 /[place] 02-06-2020 06:35-0400 BMI (Body Mass Index) 41.97 kg/m2 [facility] [place] 02-06-2020 06:35-0400 Body weight 97.48 kg [facility] [place] [facility] [place] 02-05-2020 12:19-0400 Height 152.4 cm Richar Cox [place], [place] 05-20-2017 09:33-0500 BMI (Body Mass Index) 41.8 kg/m2 Bernadine Nicholas MD [facility] 05-20-2017 09:33-0500 BP Diastolic 84 mm[Hg] Bernadine Nicholas MD [facility] 05-20-2017 09:33-0500 BP Systolic 134 mm[Hg] Bernadine Nicholas MD [facility] 05-20-2017 09:33-0500 Height 149.86 cm Bernadine Nicholas MD [facility] 05-20-2017 09:33-0500 Weight 93.9 kg Bernadine Nicholas MD [facility] 05-20-2017 09:33-0500 Weight 93.89 kg Bernadine Nicholas MD [facility] Encounters Encounter Date Encounter Type Care Provider Facility Start: 05-25-2023 End: 05-26-2023 ambulatory NIGHAT ORTIZ BLUE LINE TRIMMER - FURNITURE RENTAL CONSULTANT Facility:B Start: 05-25-2023 End: 05-25-2023 Patient encounter procedure NIGHAT ORTIZ BLUE LINE TRIMMER - FURNITURE RENTAL CONSULTANT [facility] Start: 05-09-2023 End: 05-10-2023 ambulatory NIGHAT ORTIZ BLUE LINE TRIMMER - FURNITURE RENTAL CONSULTANT Facility:B Start: 05-09-2023 End: 05-09-2023 Patient encounter procedure ANTONY GO BLUE LINE TRIMMER-FURNITURE RENTAL CONSULTANT [facility] Start: 04-26-2023 End: 04-27-2023 ambulatory ANTONY GO BLUE LINE TRIMMER-FURNITURE RENTAL CONSULTANT Facility:B Start: 04-26-2023 End: 04-26-2023 Patient encounter procedure ANTONY GO BLUE LINE TRIMMER-FURNITURE RENTAL CONSULTANT [facility] Start: 04-14-2023 End: 04-15-2023 ambulatory NIGHAT COCHRANPKINS BLUE LINE TRIMMER - FURNITURE RENTAL CONSULTANT Facility:B Start: 04-14-2023 End: 04-14-2023 Patient encounter procedure ANTONY GO BLUE LINE TRIMMER-FURNITURE RENTAL CONSULTANT [facility] Start: 04-13-2023 End: 04-18-2023 ambulatory ANTONY GO BLUE LINE TRIMMER-FURNITURE RENTAL CONSULTANT Facility:A Start: 04-13-2023 End: 04-13-2023 Patient encounter procedure ANTONY GO BLUE LINE TRIMMER-FURNITURE RENTAL CONSULTANT [facility] Start: 03-21-2023 End: 06-13-2023 ambulatory NIGHAT Lopez DIANA BLUE LINE TRIMMER - FURNITURE RENTAL CONSULTANT Facility:B Start: 02-23-2023 End: 02-23-2023 Emergency department patient visit NIGHAT Lopez DIANA BLUE LINE TRIMMER - FURNITURE RENTAL CONSULTANT Facility:B Start: 02-23-2023 End: 02-23-2023 Emergency department patient visit BANDAR PEDRAZA DO [facility] Start: 02-11-2023 End: 02-12-2023 ambulatory NIGHAT Lopez DIANA BLUE LINE TRIMMER - FURNITURE RENTAL CONSULTANT Facility:B Start: 02-11-2023 End: 02-11-2023 Patient encounter procedure NIGHAT John CRUZDIANA BLUE LINE TRIMMER - FURNITURE RENTAL CONSULTANT [facility] Start: 02-05-2023 End: 02-05-2023 Emergency department patient visit NIGHAT ORTIZ BLUE LINE TRIMMER - FURNITURE RENTAL CONSULTANT Facility:B Start: 02-05-2023 End: 02-05-2023 Emergency department patient visit JUAQUIN FERNANDES DO [facility] Start: 11-04-2022 End: 11-05-2022 ambulatory NIGHAT CRUZKINS BLUE LINE TRIMMER - FURNITURE RENTAL CONSULTANT Facility:B Start: 11-04-2022 End: 11-04-2022 Patient encounter procedure NIGHAT CRUZKINS BLUE LINE TRIMMER - FURNITURE RENTAL CONSULTANT [facility] Start: 05-10-2022 End: 05-10-2022 Patient encounter procedure NIGHAT John CRUZDIANA BLUE LINE TRIMMER - FURNITURE RENTAL CONSULTANT [facility] Start: 04-15-2022 End: 04-15-2022 Patient encounter procedure AMANDA SHOEMAKER MD [facility] Start: 11-09-2021 End: 11-09-2021 Patient encounter procedure NIGHAT ORTIZ BLUE LINE TRIMMER - FURNITURE RENTAL CONSULTANT [facility] Start: 07-08-2021 End: 07-08-2021 Patient encounter procedure NIGHAT ORTIZ BLUE LINE TRIMMER - FURNITURE RENTAL CONSULTANT [facility] Start: 06-09-2021 End: 06-09-2021 Patient encounter procedure NIGHAT ORTIZ BLUE LINE TRIMMER - FURNITURE RENTAL CONSULTANT [facility] Start: 05-19-2021 End: 05-19-2021 Patient encounter procedure AMANDA SHOEMAKER MD [facility] Start: 05-11-2021 End: 05-11-2021 Patient encounter procedure NIGHAT ORTIZ BLUE LINE TRIMMER - FURNITURE RENTAL CONSULTANT [facility] Start: 02-05-2020 End: 02-06-2020 Evaluation and management of inpatient Richar Cox [facility] Start: 02-01-2018 Patient encounter Matteo canales:[facility] Procedures Date Procedure Procedure Detail Performing Clinician Start: 03-06-2020 Electrocardiographic monitor and recorder, device (physical object) NIGHAT ORTIZ BLUE LINE TRIMMER - [employer] Plan of Treatment Date Care Activity Detail Author Start: 02-05-2021 Creatinine measurement Creatinine monitoring [place], [place] Start: 02-05-2021 Potassium monitoring Potassium monitoring [place], [place] Start: 02-26-2020 Influenza vaccination Flu vaccine (#1) [place] Start: 10-25-2017 End: 10-25-2017 Appointment Appointment [facility] Start: 05-20-2017 End: 05-20-2017 Appointment Appointment [facility] Start: 05-09-2017 End: 05-09-2017 Appointment Appointment [facility] Basic Metabolic Pane l w/ Reflex to MG Basic Metabolic Panel w/ Reflex to MG Lab Routine Daily until discontinued starting 02/05/2020, 2 completed [place] Immunizations Immunization Date Immunization Notes Care Provider Dario ying 02-23-2023 tetanus toxoid, redu freda diphtheria toxoid, and acellular pertussis vaccine, adsorbed BANDAR PEDRAZA DO [facility] 05-13-2022 influenza, injectabl e, quadrivalent, contains preservative; Translations: [Fluarix PF Quadrivalent ] NIGHAT ORTIZ BLUE LINE TRIMMER [employer] [facility] 10-04-2019 Influenza, injectabl e, Madin Cailin Canine Kidney, preservative free, quadrivalent; Translations: [Flucelvax PF Quadrivalent ] NIGHAT ORTIZ BLUE LINE TRIMMER [employer] [facility] 03-05-2013 tetanus toxoid, redu freda diphtheria toxoid, and acellular pertussis vaccine, adsorbed NIGHAT ORTIZ BLUE LINE TRIMMER [employer] [facility] NEGATED: Highlighted row has not occurred!04-04-2017 pneumococcal polysaccharide vaccine, 23 valent Richar Cox [place], [place] Payers Date Payer Category Payer Unknown [id number] 2016 Unknown [id number] 1974 Unknown [id number] 2.16.8 [id number] 1974 Unknown [id number] 2.16.8 [id number] 1974 Unknown [id number] 2.16.8 [id number] 1974 Unknown [id number] 2.16.8 [id number] 1974 Unknown [id number] 2.16.8 [id number] 1974 Unknown [id number] 2.16.8 [id number] 1974 Unknown [id number] 2.16.8 [id number] 1974 Unknown [id number] 2.16.8 [id number] 1974 Unknown [id number] 2.16.8 [id number] 1974 Unknown [id number] 2.16.8 [id number] 1974 Unknown [id number] 2.16.8 [id number] 1974 Unknown [id number] 2.16.8 [id number] Social History Date Type Detail Facility Start: 02-05-2020 [facility] [place] Start: 02-05-2020 Tobacco use and exposure Never used [place] Start: 02-05-2020 Alcohol intake Current non-dr pawn broker of alcohol (finding) [place] Start: 02-05-2020 Tobacco Comment quit over 25 years a go [place] Sex Assigned At Not on file [place] Exposure to SARS-CoV -2 (event) Not sure [place] Start: 03-31-2020 Never smoked t obacco (finding) [facility] Medical Equipment Procedure Code Equipment Code Equipment Origin al Text Equipment Identifier Dates Blood Glucose Te st Strips Start: 04-22-[address]ps Start: 04-22-[address]ps Start: 04-22-[address]ps Start: 04-22-2020 See Instructions , Pt. tests 1 daily. HERMES MET[employer]X ICD-10: 250.00, # 50 EA, 12 Refill(s), Pharmacy: [place] [facility] [id number], Type 2 diabetes mellitus with hemoglobin A1c goal of less than 7.5%, 152, cm, 04/17/20 13:30:00 EDT, Height, 95.9... Start: 04-22-2020 See Instructions , Pt. tests 1 daily. HERMES [employer]X ICD-10: 250.00, # 50 EA, 12 Refill(s), Pharmacy: [place] [facility] [id number], Type 2 diabetes mellitus with hemoglobin A1c goal of less than 7.5%, 152, cm, 04/17/20 13:30:00 EDT, Height, 95.9... Start: 04-22-2020 See Instructions , Pt. tests 1 daily. HERMES [employer] ICD-10: 250.00, # 50 EA, 12 Refill(s), Pharmacy: [place] [id number], Type 2 diabetes mellitus with hemoglobin A1c goal of less than 7.5%, 152, cm, 04/17/20 13:30:00 EDT, Height, 95.9... Start: 04-22-2020 See Instructions , Pt. tests 1 daily. (which ever is covered by insurance), # 50 EA, 12 Refill(s), Pharmacy: [place] [facility] [id number], Type 2 diabetes mellitus with hemoglobin A1c goal of less than 7.5% DM type 2, goal HbA1c < 7.5%, 152.4... Start: 10-28-2022 See Instructions , Generic lancets (which ever insurance covers) patient tests once daily. Give one box., # 50 EA, 12 Refill(s), Pharmacy: [place] [facility] [id number], DM type 2, goal HbA1c < 7.5%, 152.4, cm, 05/13/22 15:07:00 EST, Height, 96.4 Start: 10-28-2022 See Instructions , Pt. tests 1 daily. (which ever is covered by insurance), # 50 EA, 12 Refill(s), Pharmacy: [place] [id number], Type 2 diabetes mellitus with hemoglobin A1c goal of less than 7.5% DM type 2, goal HbA1c < 7.5%, 152.4, cm, 05/13/22 15:07:00 EST, Height, 96.4, kg, 05/13/22 15:07:00 EST, Dosing Weight Start: 10-28-2022 See Instructions , Generic lancets (which ever insurance covers) patient tests once daily. Give one box., # 50 EA, 12 Refill(s), Pharmacy: [facility] [id number], DM type 2, goal HbA1c < 7.5%, 152.4, cm, 05/13/22 15:07:00 EST, Height, 96.4 Start: 10-28-2022 See Instructions , Pt. tests 1 daily. (which ever is covered by insurance), # 50 EA, 12 Refill(s), Pharmacy: [place] [facility] [id number], Type 2 diabetes mellitus with hemoglobin A1c goal of less than 7.5% DM type 2, goal HbA1c < 7.5%, 152.4, cm, 05/13/22 15:07:00 EST, Height, 96.4, kg, 05/13/22 15:07:00 EST, Dosing Weight Start: 10-28-2022 See Instructions , Generic lancets (which ever insurance covers) patient tests once daily. Give one box., # 50 EA, 12 Refill(s), Pharmacy: [place] [facility] [id number], DM type 2, goal HbA1c < 7.5%, 152.4, cm, 05/13/22 15:07:00 EST, Height, 96.4 Start: 10-28-2022 See Instructions , Pt. tests 1 daily. (which ever is covered by insurance), # 50 EA, 12 Refill(s), Pharmacy: [place] [id number], Type 2 diabetes mellitus with hemoglobin A1c goal of less than 7.5% DM type 2, goal HbA1c < 7.5%, 152.4, cm, 05/13/22 15:07:00 EST, Height, 96.4, kg, 05/13/22 15:07:00 EST, Dosing Weight Start: 10-28-2022 See Instructions , Generic lancets (which ever insurance covers) patient tests once daily. Give one box., # 50 EA, 12 Refill(s), Pharmacy: [place] [id number], DM type 2, goal HbA1c < 7.5%, 152.4, cm, 05/13/22 15:07:00 EST, Height, 96.4 Start: 10-28-2022 See Instructions , Pt. tests 1 daily. (which ever is covered by insurance), # 50 EA, 12 Refill(s), Pharmacy: [place] [id number], Type 2 diabetes mellitus with hemoglobin A1c goal of less than 7.5% DM type 2, goal HbA1c < 7.5%, 152.4, cm, 05/13/22 15:07:00 EST, Height, 96.4, kg, 05/13/22 15:07:00 EST, Dosing Weight Start: 10-28-2022 See Instructions , Generic lancets (which ever insurance covers) patient tests once daily. Give one box., # 50 EA, 12 Refill(s), Pharmacy: [place] [id number], DM type 2, goal HbA1c < 7.5%, 152.4, cm, 05/13/22 15:07:00 EST, Height, 96.4 Start: 10-28-2022 See Instructions , Pt. tests 1 daily. (which ever is covered by insurance), # 50 EA, 12 Refill(s), Pharmacy: [place] [id number], Type 2 diabetes mellitus with hemoglobin A1c goal of less than 7.5% DM type 2, goal HbA1c < 7.5%, 152.4, cm, 05/13/22 15:07:00 EST, Height, 96.4, kg, 05/13/22 15:07:00 EST, Dosing Weight Start: 10-28-2022 See Instructions , Generic lancets (which ever insurance covers) patient tests once daily. Give one box., # 50 EA, 12 Refill(s), Pharmacy: [place] [id number], DM type 2, goal HbA1c < 7.5%, 152.4, cm, 05/13/22 15:07:00 EST, Height, 96.4 Start: 10-28-2022 See Instructions , Pt. tests 1 daily. (which ever is covered by insurance), # 50 EA, 12 Refill(s), Pharmacy: [place] [id number], Type 2 diabetes mellitus with hemoglobin A1c goal of less than 7.5% DM type 2, goal HbA1c < 7.5%, 152.4, cm, 05/13/22 15:07:00 EST, Height, 96.4, kg, 05/13/22 15:07:00 EST, Dosing Weight Start: 10-28-2022 See Instructions , Generic lancets (which ever insurance covers) patient tests once daily. Give one box., # 50 EA, 12 Refill(s), Pharmacy: [place] [id number], DM type 2, goal HbA1c < 7.5%, 152.4, cm, 05/13/22 15:07:00 EST, Height, 96.4 Start: 10-28-2022 See Instructions , Pt. tests 1 daily. (which ever is covered by insurance), # 50 EA, 12 Refill(s), Pharmacy: [place] [id number], Type 2 diabetes mellitus with hemoglobin A1c goal of less than 7.5% DM type 2, goal HbA1c < 7.5%, 152.4, cm, 05/13/22 15:07:00 EST, Height, 96.4, kg, 05/13/22 15:07:00 EST, Dosing Weight Start: 10-28-2022 See Instructions , Generic lancets (which ever insurance covers) patient tests once daily. Give one box., # 50 EA, 12 Refill(s), Pharmacy: [place] [id number], DM type 2, goal HbA1c < 7.5%, 152.4, cm, 05/13/22 15:07:00 EST, Height, 96.4 Start: 10-28-2022 See Instructions , Pt. tests 1 daily. (which ever is covered by insurance), # 50 EA, 12 Refill(s), Pharmacy: [place] [id number], Type 2 diabetes mellitus with hemoglobin A1c goal of less than 7.5% DM type 2, goal HbA1c < 7.5%, 152.4, cm, 05/13/22 15:07:00 EST, Height, 96.4, kg, 05/13/22 15:07:00 EST, Dosing Weight Start: 10-28-2022 See Instructions , Generic lancets (which ever insurance covers) patient tests once daily. Give one box., # 50 EA, 12 Refill(s), Pharmacy: [place] [id number], DM type 2, goal HbA1c < 7.5%, 152.4, cm, 05/13/22 15:07:00 EST, Height, 96.4 Start: 10-28-2022 See Instructions , Pt. tests 1 daily. (which ever is covered by insurance), # 50 EA, 12 Refill(s), Pharmacy: [place] [id number], Type 2 diabetes mellitus with hemoglobin A1c goal of less than 7.5% DM type 2, goal HbA1c < 7.5%, 152.4, cm, 05/13/22 15:07:00 EST, Height, 96.4, kg, 05/13/22 15:07:00 EST, Dosing Weight Start: 10-28-2022 See Instructions , Generic lancets (which ever insurance covers) patient tests once daily. Give one box., # 50 EA, 12 Refill(s), Pharmacy: [place] [id number], DM type 2, goal HbA1c < 7.5%, 152.4, cm, 05/13/22 15:07:00 EST, Height, 96.4 Start: 10-28-2022 Functional Status Date Assessment Result Facility 02-23-2023 Functional Status ID band on, Allergy Band on, Call device within reach, Bed in low position, Wheels locked, Visitor at bedside [facility] 02-05-2023 Functional Status Independent Shabnam muro [facility] Mental Status Date Assessment Result Facility 02-23-2023 [facility] 02-05-2023 Mental Status Oriented x 4 [facility] Clinical Notes 06-09-2021 to 05-25-2023 Note Date & Type Note Facility [facility] 11-13-2023 Note ORIGINAL EXAMINATION: BONE DENSITOMETRY 05/09/2023 10:10 am TECHNIQUE: A bone density dual x-ray absorptiometry (DEXA) scan was performed of the lumbar spine and left hip on a [employer] system. COMPARISON: 03/10/2021 HISTORY: ORDERING SYSTEM PROVIDED HISTORY: Reason for Exam: screen for osteoporosis, s/p hysterectomy FINDINGS: BMD (g/cm2) Lumbar Spine L1-L4: 1.168. T Score Lumbar Spine L1-L4: 1.1 BMD (g/cm2) Left Femoral Neck: 0.928. T Score Left Femoral Neck: 0.7 BMD (g/cm2) Left Hip: 1.161. T Score Left Hip: 1.8 BMD Change from previous Hip: 2.9% BMD Change from previous Lumbar spine: -7.6% 10 year fracture Risk: FRAX not reported because all T-scores for the spine, total hip and femoral neck are at or above -1.0. IMPRESSION: Normal bone mineral density by WHO criteria. I have personally reviewed the images of this examination and agree with the resident's findings and interpretation. Interpreted by: Xochitl Arredondo Preliminary Report By: Darrel White Electronically signed By Xochitl Arredondo Dictated Date: 05/09/2023 10:10:34 AM Prelim Date: 05/09/2023 10:58:07 AM Sign Date: 05/09/2023 10:58:07 AM Ordering Provider[facility] Note . MICRO - Microbiology PROCEDURE: Urine Culture [*1] SOURCE: Urine BODY SITE: COLLECTED DATE/TIME: 04/13/2023 16:53 EDT RECEIVED DATE/TIME: 04/13/2023 23:13 EDT START DATE/TIME: 04/13/2023 23:13 EDT FREE TEXT SOURCE: FINAL REPORTS Final Report [] Verified Date/Time/Personnel: 04/15/2023 07:40 EDT <10,000 cfu/ml. No Significant growth. Sensitivity not indicated. PRELIMINARY REPORTS Preliminary Report [] Verified Date/Time/Personnel: 04/14/2023 09:44 EDT No growth to date Performing Locations *1: This test was performed at: [facility], [address] [place] [address], [id number] , [facility] ([place])02-23-2023 Hospital Discharge instructions Patient Education 02/23/2023 17:59:28 Cat Bite Cat Bite A cat bite can cause a wound deep enough to break the skin. In such cases, the wound is cleaned andthen sometimes closed. If the wound is closed it is usually not closed completely. This is so that fluid can drain if the wound becomes infected. Often the wound is left open to heal. In addition to wound care, a tetanus shot may be given, if needed. Home care Wash your hands well with soap and warm water before and after caring for the wound. This helps lower the risk of infection. Care for the wound as directed. If a dressing was applied to the wound, be sure to change it as directed. If the wound bleeds, place a clean, soft cloth on the wound. Then firmly apply pressure until the bleeding stops. This may take up to 5 minutes. Don't release the pressure and look at the wound during this time. Always get medical attention for cat bites on the hand. They are highly likely to become infected. Most wounds heal within 10 days. But an infection can occur even with proper treatment. So be sure to check the wound daily for signs of infection (see below). Antibiotics may be prescribed. These help prevent or treat infection. If you re given antibiotics, take them as directed. Also be sure to complete the medicines. Rabies prevention Rabies is a virus that can be carried in certain animals. These can include domestic animals such as cats and dogs. Pets fully vaccinated against rabies (2 shots) are at very low risk of infection. But because human rabies is almost always fatal, any biting pet should be confined for 10 days as an extra precaution. In general, if there is a risk for rabies, the following steps may need to be taken: If someone s pet cat has bitten you, it should be kept in a secure area for the next 10 days to watch for signs of illness. If the pet prime minister won t allow this, contact your local animal control center. If the cat becomes ill or dies during that time, contact your local animal control center at once so the animal may be tested for rabies. If the cat stays healthy for the next 10 days, there is no danger of rabies in the animal or you. If a stray cat bit you, contact your local animal control center. They can give information on capture, quarantine, and animal rabies testing. If you can t find the animal that bit you in the next 2 days, and if rabies exists in your area, you may need to receive the rabies vaccine series. Call your healthcare provider right away. Or returnto the emergency department promptly. All animal bites should be reported to the local animal control center. If you were not given a form to fill out, you can report this yourself. Follow-up care Follow up with your healthcare provider, or as directed. When to seek medical advice Call your healthcare provider right away if any of these occur: Signs of infection: oSpreading redness or warmth from the wound oIncreased pain or swelling oFever of 100.4 F (38 C) or higher, or as directed by your healthcare provider oColored fluid or pus draining from the wound oEnlarged lymph nodes above the area that was bitten, such as lymph nodes in the armpit if you werebitten on the hand or arm. This may be a sign of cat-scratch disease (cat-scratch fever). Signs of rabies infection: oHeadache oConfusion oStrange behavior oIncreased salivating or drooling oSeizure Decreased ability to move any body part near the bite area Bleeding that can't be stopped after 5 minutes of firm pressure [id number] [employer]. [address] [place] [address], [place] [address]. All rights reserved. This information is not intended as a substitute for professional medical care. Always follow yourhealthcare professional's instructions. Follow Up Care 02/23/2023 17:33:59 With:NIGHAT ORTIZ Address: [address] [place] [address] [place] [address]- Drug Response Dx (1) When:2-4 days [facility] 08-30-2023 Note Discharge Instructions Thank you for allowing [facility] to assist you with your healthcare needs. The following is importantdischarge information regarding your hospital visit. Diagnosis from Today's Visit Cat bite What to Do Next Instructions from Your Care Team No qualifying data available. Post Acute Orders No qualifying data available. You Need to Schedule the Following Appointments Follow Up with NIGHAT ORTIZ When Within 2-4 days Where: [address] [facility] [place] [place], [place] [address] (1) Allergies Contrast dye (Lungs fill up with fluid) shellfish Medications Please ask your primary doctor or pharmacist before taking any other medication not listed, including over the counter drugs, herbal medications, vitamins and or supplements as they may interact withyour home medications. What How Much When Why Instructions Last Dose New amoxicillin-clavulanate (amoxicillin-clavulanate 875 mg-125 mg oral tablet) 1 tab(s) by mouth Every 12 hours Duration: 14 Days Printed Prescription Unchanged albuterol (ProAir HFA MDI (90 mcg/ inh) inhalation aerosol) 2 puff(s) by inhalation Every 6 hours COPD - Chronic obstructive pulmonary disease Duration: 30 Days PRN Unchanged amLODIPine (amLODIPine 5 mg oral tablet) 1 tab(s) by mouth Once a day HTN, goal below 140/90 Duration: 30 Days Unchanged budesonide-formoterol (Symbicort 160 mcg-4.5 mcg/ inh Inhaler) 2 puff(s) by inhalation Two (2) times a day COPD - Chronic obstructive pulmonary disease Duration: 30 Days Unchanged cholecalciferol (cholecalciferol 1250 mcg (50,000 intl units) oral capsule) 1 cap by mouth Every week Vitamin D deficiency Unchanged diclofenac (diclofenac sodium 75 mg oral delayed release tablet) 1 tab(s) by mouth Two (2) times a day Unchanged diphenhydrAMINE (Benadryl 25 mg oral tablet) See instructions Take ii tablets [address] Unchanged DME (Blood Glucose Test Strips) See instructions Type 2 diabetes mellitus with hemoglobin A1c goal of less than 7.5% DM type 2, goal HbA1c < 7.5% Pt. tests 1 daily. (which ever is covered by insurance) Unchanged DME (DME MISCellaneous) See instructions DM type 2, goal HbA1c < 7.5% Generic lancets (which ever insurance covers) patient tests once daily. Give one box. Unchanged DME (DME MISCellaneous) See instructions DM type 2, goal HbA1c < 7.5% Generic Glucometer kit. (which ever is covered by insurance.) Unchanged DME (Pen needles 4 mm) See instructions DM type 2, goal HbA1c < 7.5% 1 box of pen needle daily due to DM 2 - E11.9 filling in lieu of PCP Unchanged DULoxetine (Cymbalta 60 mg oral delayed release capsule) 1 cap by mouth Once a day Unchanged estradiol (estradiol 0.5 mg oral tablet) 1 tab(s) by mouth Once a day Unchanged fenofibrate (fenofibrate 145 mg oral tablet) 1 tab(s) by mouth Once a day Hyperlipidemia LDL goal <100 Duration: 30 Days Unchanged hydrOXYzine (Vistaril 50 mg oral capsule) 1 cap by mouth Three (3) times a day as needed for as needed for anxiety Unchanged insulin glargine (Lantus Solostar Pen 100 units/ mL 3 mL Pen) 55 unit(s) Subcutaneous Daily at bedtime DM type 2, goal HbA1c < 7.5% Duration: 30 Days Unchanged metFORMIN (MetFORMIN (Eqv-Glucophage XR) 500 mg oral tablet, EXTENDED RELEASE) 1 tab(s) by mouth Two (2) times a day DM type 2, goal HbA1c < 7.5% Duration: 30 Days Unchanged Misc Medication (ONETOUCH DELICA PLUS 33G LANCT) Unchanged montelukast (montelukast 10 mg oral tablet) 1 tab(s) by mouth Once a day Unchanged pantoprazole (pantoprazole 40 mg oral enteric coated tablet) 1 tab(s) by mouth Once a day GERD - Gastro-esophageal reflux disease Duration: 30 Days Unchanged prazosin (prazosin 5 mg oral capsule) 1 cap by mouth Daily at bedtime Unchanged rosuvastatin (rosuvastatin 40 mg oral tablet) 1 tab(s) by mouth Once a day Hyperlipidemia LDL goal <100 Duration: 30 Days Unchanged tiZANidine (tiZANidine 4 mg oral tablet) 1 tab(s) by mouth Three (3) times a day as needed for Muscle spasm Duration: 10 Days Unchanged traMADol (traMADol 50 mg oral tablet) 1 tab(s) by mouth Every 6 hours as needed for for pain Unchanged traZODone (traZODone 100 mg oral tablet) 1-3tab(s) by mouth Daily at bedtime as needed for Sleep Stop amitriptyline Unchanged valsartan (Diovan 80 mg oral tablet) 1 tab(s) by mouth Once a day HTN, goal below 140/90 Please take this list to your next doctor s visit. Bring all medications you take, including over the counter medications, herbals and other supplements with you to your doctor s visit. Patients and families are reminded to discard old lists and to update any records with all medication providers or retail pharmacies. Education Materials Cat Bite A cat bite can cause a wound deep enough to break the skin. In such cases, the wound is cleaned andthen sometimes closed. If the wound is closed it is usually not closed completely. This is so that fluid can drain if the wound becomes infected. Often the wound is left open to heal. In addition to wound care, a tetanus shot may be given, if needed. Home care Wash your hands well with soap and warm water before and after caring for the wound. This helps lower the risk of infection. Care for the wound as directed. If a dressing was applied to the wound, be sure to change it as directed. If the wound bleeds, place a clean, soft cloth on the wound. Then firmly apply pressure until the bleeding stops. This may take up to 5 minutes. Don't release the pressure and look at the wound during this time. Always get medical attention for cat bites on the hand. They are highly likely to become infected. Most wounds heal within 10 days. But an infection can occur even with proper treatment. So be sure to check the wound daily for signs of infection (see below). Antibiotics may be prescribed. These help prevent or treat infection. If you re given antibiotics, take them as directed. Also be sure to complete the medicines. Rabies prevention Rabies is a virus that can be carried in certain animals. These can include domestic animals such as cats and dogs. Pets fully vaccinated against rabies (2 shots) are at very low risk of infection. But because human rabies is almost always fatal, any biting pet should be confined for 10 days as an extra precaution. In general, if there is a risk for rabies, the following steps may need to be taken: If someone s pet cat has bitten you, it should be kept in a secure area for the next 10 days to watch for signs of illness. If the pet prime minister won t allow this, contact your local animal control center. If the cat becomes ill or dies during that time, contact your local animal control center at once so the animal may be tested for rabies. If the cat stays healthy for the next 10 days, there is no danger of rabies in the animal or you. If a stray cat bit you, contact your local animal control center. They can give information on capture, quarantine, and animal rabies testing. If you can t find the animal that bit you in the next 2 days, and if rabies exists in your area, you may need to receive the rabies vaccine series. Call your healthcare provider right away. Or returnto the emergency department promptly. All animal bites should be reported to the local animal control center. If you were not given a form to fill out, you can report this yourself. Follow-up care Follow up with your healthcare provider, or as directed. When to seek medical advice Call your healthcare provider right away if any of these occur: Signs of infection: oSpreading redness or warmth from the wound oIncreased pain or swelling oFever of 100.4 F (38 C) or higher, or as directed by your healthcare provider oColored fluid or pus draining from the wound oEnlarged lymph nodes above the area that was bitten, such as lymph nodes in the armpit if you werebitten on the hand or arm. This may be a sign of cat-scratch disease (cat-scratch fever). Signs of rabies infection: oHeadache oConfusion oStrange behavior oIncreased salivating or drooling oSeizure Decreased ability to move any body part near the bite area Bleeding that can't be stopped after 5 minutes of firm pressure [id number] [employer]. [address] [place] [address], [place] [address]. All rights reserved. This information is not intended as a substitute for professional medical care. Always follow yourhealthcare professional's instructions. Additional Information VACCINATE! IT SAVES LIVES! Members of the community who have not yet received the COVID-19 vaccine and would like to receive it can visit one of [facility] vaccine clinics. There are many vaccine clinic locations within the [facility]. For locations and available times, please visit www.[email or web address].[place].gov/. It is important to note that some COVID mobile vaccine clinics are held outdoors and may be canceled in rainy or stormy conditions. To learn more about pediatric vaccinations (ages 5-11), we invite you to visit the [facility] webpage. [email or web address] learn more about the COVID-19 vaccine, we invite you to visit the CDC website for a list of frequently asked questions. https://www.cdc.gov/coronavirus/2019-ncov/vaccines/faq.html [facility] Patient Portal Access Instructions: Stay connected with your healthcare team and access your personal medical information anytime with the [facility] Patient Portal. If you would like a full copy of your medical records please contact the [facility] Medical Records Department Tuesday through Tuesday between 8a.m. and 4:30p.m. Please follow the directions below to access the portal: 1.Access the email account you provided upon registration to the hospital.2.Look for an invitation email from [facility].3.Open the email and access the invitation link: Accept Invitation to [facility]4.Fill in the required valera to create your account. Sign into www.[employer] with your username and password that you created in the above steps to stay up to date. You can then view a summary of results, a summary of your visits, and the ability to download your summaries to your computer or send the information securely to a physician. Remember that your healthcare information is confidential, so carefully consider who you will allow to register on the [facility] Patient Portal for access to your information. You can also access the [facility] Patient Portal on the [employer]. Simply click on Health Records under [employer] and then click on the [facility] logo. HOW TO SAFELY DISPOSE OF PRESCRIPTION MEDICATIONS Please use one of the following methods to safely dispose of your unused medications. 1.Use a drug disposal kit: the drug disposal pouch allows you to safely discard your old and unuseddrugs. Ask your nurse to give you one when you are discharged.2.Visit a local take-back location: Many local pharmacies and police departments have programs that collect old and unwanted prescriptiondrugs. Call your local pharmacy or go to http://[employer].ePrep/8U6Ao4m to find one close to you.3.Make use of household items: Use cat litter or old coffee grounds to dispose medications if other options arenot available. Mix your drugs with these household products, seal them in an airtight container andthrow it into the garbage. Call [facility]: [phone] to be sure your drugs can be disposed of in this way. Some medicines may require a different approach.4.Never flush your medications down the toilet. IF YOU HAVE BEEN PRESCRIBED AN OPIOIDS FOR PAIN If you have been prescribed an opioid (such as hydrocodone, oxycodone or morphine), it is critical to understand the possible side effects and risks of opioid pain medications. Even when taken as directed, opioids can have several side effects including: Tolerance, meaning you might need to take more of a medication for the same pain relief. Nausea, vomiting and/or constipation. Sleepiness, dizziness, dry mouth, confusion, depression or itching. Physical dependence, meaning you have withdrawal symptoms when a medication is stopped ? this can develop within a few days. KNOW YOUR RESPONSIBILITIES It is important to know exactly how much and how often to take the opioid pain medications you are prescribed. Never take opioids in higher amounts or more often than prescribed. Do not combine opioids with alcohol or other drugs that cause drowsiness, such as benzodiazepines, also known as benzos,including diazepam and alprazolam, muscle relaxants or sleep aids. Never sell or share prescriptionopioids. This is illegal. Store opioids in a secure place and out of reach of others (including children, family, friends and visitors). The last page(s) of this document has been signed and retained as a CHART COPY Signatures Patient Education Materials Cat Bite Medication Leaflets My discharge plan and instructions have been reviewed and explained to me and IARBEN MICHELE L understand my current condition and have read and understand these discharge instructions. I have received a written copy of the plan/instructions. If I have questions, I am aware that I should contactmy doctor. Patient/Sample Puller Signature: Date/Time: Relationship to Patient: Witness Name/Signature: Date/Time: [facility]08-12-2023 Hospital Discharge instructions Patient Education 02/05/2023 12:00:55 Understanding Lumbar Radiculopathy Understanding Lumbar Radiculopathy Lumbar radiculopathy is irritation or inflammation of a nerve root in the low back. It causes symptoms that spread out from the back down one or both legs. To understand this condition, it helps to understand the parts of the spine: Vertebrae. These are bones that stack to form the spine. The lumbar spine contains the 5 bottom vertebrae. Disks. These are soft pads of tissue between the vertebrae. They act as shock absorbers for the spine. Spinal canal. This is a tunnel formed within the stacked vertebrae. In the lumbar spine, nerves runthrough this canal. Nerves. These branch off and leave the spinal canal, traveling out to parts of the body. As they leave the spinal canal, nerves pass through openings between the vertebrae. The nerve root is the partof the nerve that is closest to the spinal canal. Sciatic nerve. This is a large nerve formed from several nerve roots in the low back. This nerve extends down the back of the leg to the foot. With lumbar radiculopathy, nerve roots in the low back become irritated. This leads to pain and symptoms. The sciatic nerve is commonly involved, so the condition is often called sciatica. What causes lumbar radiculopathy? Aging, injury, poor posture, extra body weight, and other issues can lead to problems in the low back. These problems may then irritate nerve roots. They include: Damage to a disk in the lumbar spine. The damaged disk may then press on nearby nerve roots. Degeneration from wear and tear, and aging. This can lead to narrowing (stenosis) of the openings between the vertebrae. The narrowed openings press on nerve roots as they leave the spinal canal. Unstable spine. This is when a vertebra slips forward. It can then press on a nerve root. Other, less common things can put pressure on nerves in the low back. These include diabetes, infection, or a tumor. Symptoms of lumbar radiculopathy These include: Pain in the low back Pain, numbness, tingling, or weakness that travels into the buttocks, hip, groin, or leg Muscle spasms Treatment for lumbar radiculopathy In most cases, your healthcare provider will first try treatments that help relieve symptoms. Thesemay include: Prescription and fthb-yek-rsejdvs pain medicines. These help relieve pain, swelling, and irritation. Limits on positions and activities that increase pain. But lying in bed or avoiding all movement isonly recommended for a short period of time. Physical therapy, including exercises and stretches. This helps decrease pain and increase movementand function. Steroid shots into the lower back. This may help relieve symptoms for a time. Weight-loss program. If you are overweight, losing extra pounds may help relieve symptoms. In some cases, you may need surgery to fix the underlying problem. This depends on the cause, the symptoms, and how long the pain has lasted. Possible complications Over time, an irritated and inflamed nerve may become damaged. This may lead to long-lasting (permanent) numbness or weakness in your legs and feet. If symptoms change suddenly or get worse, be sure to let your healthcare provider know. When to call your healthcare provider Call your healthcare provider right away if you have any of these: New pain or pain that gets worse New or increasing weakness, tingling, or numbness in your leg or foot Problems controlling your bladder or bowel [id number] [employer]. [address] [place] [address], [place] [address]. All rights reserved. This information is not intended as a substitute for professional medical care. Always follow yourhealthcare professional's instructions. 02/05/2023 12:00:55 Sciatica Sciatica Sciatica is a condition that causes pain in the lower back that spreads down into the buttock, hip,and leg. Sometimes the leg pain can happen without any back pain. Sciatica happens when a spinal nerve is irritated or has pressure put on it as comes out of the spinal canal in the lower back. This most often happens when a bulge or rupture of a nearby spinal disk presses on the nerve. Sciatica can also be caused by a narrowing of the spinal canal (spinal stenosis) or spasm of the muscle in the buttocks that the sciatic nerve passes through (pyriform muscle). Sciatica is also called lumbar radiculopathy. Sciatica may begin after a sudden twisting or bending force, such as in a car accident. Or it can happen after a simple awkward movement. In either case, muscle spasm often also happens. Muscle spasmmakes the pain worse. A healthcare provider makes a diagnosis of sciatica from your symptoms and a physical exam. Unless you had an injury from a car accident or fall, you usually won t have X-rays taken at this time. This is because the nerves and disks in your back can t be seen on an X-ray. If the provider sees signsof a compressed nerve, you will need to schedule an MRI scan as an outpatient. Signs of a compressed nerve include loss of strength in a leg. Most sciatica gets better with medicine, exercise, and physical therapy. If your symptoms continue after at least 3 months of medical treatment, you may need surgery or injections to your lower back. Home care Follow these tips when caring for yourself at home: You may need to stay in bed the first few days. But as soon as possible, begin sitting up or walking. This will help you avoid problems that come from staying in bed for long periods. When in bed, try to find a position that is comfortable. A firm mattress is best. Try lying flat onyour back with pillows under your knees. You can also try lying on your side with your knees bent up toward your chest and a pillow between your knees. Avoid sitting for long periods. This puts more stress on your lower back than standing or walking. Use heat from a hot shower, hot bath, or heating pad to help ease pain. Massage can also help. You can also try using an ice pack. You can make your own ice pack by putting ice cubes in a plastic bag. Wrap the bag in a thin towel. Try both heat and cold to see which works best. Use the method that feels best for 20 minutes several times a day. You may use acetaminophen or ibuprofen to ease pain, unless another pain medicine was prescribed. Note: If you have chronic liver or kidney disease, talk with your healthcare provider before taking these medicines. Also talk with your provider if you ve had a stomach ulcer or gastrointestinal bleeding. Use safe lifting methods. Don t lift anything heavier than 15 pounds until all of the pain is gone. Follow-up care Follow up with your healthcare provider, or as advised. You may need physical therapy or additionaltests. If X-rays were taken, a radiologist will look at them. You will be told of any new findings that may affect your care. When to seek medical advice Call your healthcare provider right away if any of these occur: Pain gets worse even after taking prescribed medicine Weakness or numbness in 1 or both legs or hips Numbness in your groin or genital area You can t control your bowel or bladder Fever Redness or swelling over your back or spine [id number] [employer]. [address] [place] [address]. All rights reserved. This information is not intended as a substitute for professional medical care. Always follow yourhealthcare professional's instructions. Follow Up Care 02/05/2023 11:24:45 With:NIGHAT ORTIZ APRN - [facility] Address: [address] [place] [address] [phone] When:2-4 days [facility] 08-12-2023 Emergency department Discharge summary Discharge Instructions Thank you for allowing [facility] to assist you with your healthcare needs. The following is importantdischarge information regarding your hospital visit. Diagnosis from Today's Visit Back pain What to Do Next Instructions from Your Care Team No qualifying data available. Post Acute Orders No qualifying data available. You Need to Schedule the Following Appointments Follow Up with NIGHAT ORTIZ APRN - [facility] [employer] CONSULTANT When Within 2-4 days Where: [address] [place] [address] [id number]- Allergies Contrast dye (Lungs fill up with fluid) shellfish Medications Please ask your primary doctor or pharmacist before taking any other medication not listed, including over the counter drugs, herbal medications, vitamins and or supplements as they may interact withur home medications. What How Much When Why Instructions Last Dose New methylPREDNISolone (Medrol Dosepak 4 mg oral tablet) Per Dosepak Instructions by mouth Every day Duration: 6 Days as directed on package labeling Printed Prescription Unchanged albuterol (ProAir HFA MDI (90 mcg/ inh) inhalation aerosol) 2 puff(s) by inhalation Every 6 hours COPD - Chronic obstructive pulmonary disease Duration: 30 Days PRN Unchanged amLODIPine (amLODIPine 5 mg oral tablet) 1 tab(s) by mouth Once a day HTN, goal below 140/90 Duration: 30 Days Unchanged budesonide-formoterol (Symbicort 160 mcg-4.5 mcg/ inh Inhaler) 2 puff(s) by inhalation Two (2) times a day COPD - Chronic obstructive pulmonary disease Duration: 30 Days Unchanged cholecalciferol (cholecalciferol 1250 mcg (50,000 intl units) oral capsule) 1 cap by mouth Every week Vitamin D deficiency Unchanged diclofenac (diclofenac sodium 75 mg oral delayed release tablet) 1 tab(s) by mouth Two (2) times a day Unchanged diphenhydrAMINE (Benadryl 25 mg oral tablet) See instructions Take ii tablets [address] Unchanged DME (Blood Glucose Test Strips) See instructions Type 2 diabetes mellitus with hemoglobin A1c goal of less than 7.5% DM type 2, goal HbA1c < 7.5% Pt. tests 1 daily. (which ever is covered by insurance) Unchanged DME (DME MISCellaneous) See instructions DM type 2, goal HbA1c < 7.5% Generic lancets (which ever insurance covers) patient tests once daily. Give one box. Unchanged DME (DME MISCellaneous) See instructions DM type 2, goal HbA1c < 7.5% Generic Glucometer kit. (which ever is covered by insurance.) Unchanged DME (Pen needles 4 mm) See instructions DM type 2, goal HbA1c < 7.5% 1 box of pen needle daily due to DM 2 - E11.9 filling in lieu of PCP Unchanged DULoxetine (Cymbalta 60 mg oral delayed release capsule) 1 cap by mouth Once a day Unchanged estradiol (estradiol 0.5 mg oral tablet) 1 tab(s) by mouth Once a day Unchanged fenofibrate (fenofibrate 145 mg oral tablet) 1 tab(s) by mouth Once a day Hyperlipidemia LDL goal <100 Duration: 30 Days Unchanged hydrOXYzine (Vistaril 50 mg oral capsule) 1 cap by mouth Three (3) times a day as needed for as needed for anxiety Unchanged insulin glargine (Lantus Solostar Pen 100 units/ mL 3 mL Pen) 55 unit(s) Subcutaneous Daily at bedtime DM type 2, goal HbA1c < 7.5% Duration: 30 Days Unchanged metFORMIN (MetFORMIN (Eqv-Glucophage XR) 500 mg oral tablet, EXTENDED RELEASE) 1 tab(s) by mouth Two (2) times a day DM type 2, goal HbA1c < 7.5% Duration: 30 Days Unchanged montelukast (montelukast 10 mg oral tablet) 1 tab(s) by mouth Once a day Unchanged pantoprazole (pantoprazole 40 mg oral enteric coated tablet) 1 tab(s) by mouth Once a day GERD - Gastro-esophageal reflux disease Duration: 30 Days Unchanged prazosin (prazosin 5 mg oral capsule) 1 cap by mouth Daily at bedtime Unchanged rosuvastatin (rosuvastatin 40 mg oral tablet) 1 tab(s) by mouth Once a day Hyperlipidemia LDL goal <100 Duration: 30 Days Unchanged tiZANidine (tiZANidine 4 mg oral tablet) 1 tab(s) by mouth Three (3) times a day as needed for Muscle spasm Duration: 14 Days Unchanged tiZANidine (tiZANidine 4 mg oral tablet) 1 tab(s) by mouth Three (3) times a day as needed for Muscle spasm Duration: 14 Days Unchanged traZODone (traZODone 100 mg oral tablet) 1-3tab(s) by mouth Daily at bedtime as needed for Sleep Stop amitriptyline Unchanged valsartan (Diovan 80 mg oral tablet) 1 tab(s) by mouth Once a day HTN, goal below 140/90 Unchanged venlafaxine (venlafaxine 75 mg oral capsule, extended release) 1 cap by mouth Once a day Please take this list to your next doctor s visit. Bring all medications you take, including over the counter medications, herbals and other supplements with you to your doctor s visit. Patients and families are reminded to discard old lists and to update any records with all medication providers or retail pharmacies. Education Materials Understanding Lumbar Radiculopathy Lumbar radiculopathy is irritation or inflammation of a nerve root in the low back. It causes symptoms that spread out from the back down one or both legs. To understand this condition, it helps to understand the parts of the spine: Vertebrae. These are bones that stack to form the spine. The lumbar spine contains the 5 bottom vertebrae. Disks. These are soft pads of tissue between the vertebrae. They act as shock absorbers for the spine. Spinal canal. This is a tunnel formed within the stacked vertebrae. In the lumbar spine, nerves runthrough this canal. Nerves. These branch off and leave the spinal canal, traveling out to parts of the body. As they leave the spinal canal, nerves pass through openings between the vertebrae. The nerve root is the partof the nerve that is closest to the spinal canal. Sciatic nerve. This is a large nerve formed from several nerve roots in the low back. This nerve extends down the back of the leg to the foot. With lumbar radiculopathy, nerve roots in the low back become irritated. This leads to pain and symptoms. The sciatic nerve is commonly involved, so the condition is often called sciatica. What causes lumbar radiculopathy? Aging, injury, poor posture, extra body weight, and other issues can lead to problems in the low back. These problems may then irritate nerve roots. They include: Damage to a disk in the lumbar spine. The damaged disk may then press on nearby nerve roots. Degeneration from wear and tear, and aging. This can lead to narrowing (stenosis) of the openings between the vertebrae. The narrowed openings press on nerve roots as they leave the spinal canal. Unstable spine. This is when a vertebra slips forward. It can then press on a nerve root. Other, less common things can put pressure on nerves in the low back. These include diabetes, infection, or a tumor. Symptoms of lumbar radiculopathy These include: Pain in the low back Pain, numbness, tingling, or weakness that travels into the buttocks, hip, groin, or leg Muscle spasms Treatment for lumbar radiculopathy In most cases, your healthcare provider will first try treatments that help relieve symptoms. Thesemay include: Prescription and qojd-qfk-bqnyzsz pain medicines. These help relieve pain, swelling, and irritation. Limits on positions and activities that increase pain. But lying in bed or avoiding all movement isonly recommended for a short period of time. Physical therapy, including exercises and stretches. This helps decrease pain and increase movementand function. Steroid shots into the lower back. This may help relieve symptoms for a time. Weight-loss program. If you are overweight, losing extra pounds may help relieve symptoms. In some cases, you may need surgery to fix the underlying problem. This depends on the cause, the symptoms, and how long the pain has lasted. Possible complications Over time, an irritated and inflamed nerve may become damaged. This may lead to long-lasting (permanent) numbness or weakness in your legs and feet. If symptoms change suddenly or get worse, be sure to let your healthcare provider know. When to call your healthcare provider Call your healthcare provider right away if you have any of these: New pain or pain that gets worse New or increasing weakness, tingling, or numbness in your leg or foot Problems controlling your bladder or bowel [id number] [employer]. [address] [place] [address]. All rights reserved. This information is not intended as a substitute for professional medical care. Always follow yourhealthcare professional's instructions. Sciatica Sciatica is a condition that causes pain in the lower back that spreads down into the buttock, hip,and leg. Sometimes the leg pain can happen without any back pain. Sciatica happens when a spinal nerve is irritated or has pressure put on it as comes out of the spinal canal in the lower back. This most often happens when a bulge or rupture of a nearby spinal disk presses on the nerve. Sciatica can also be caused by a narrowing of the spinal canal (spinal stenosis) or spasm of the muscle in the buttocks that the sciatic nerve passes through (pyriform muscle). Sciatica is also called lumbar radiculopathy. Sciatica may begin after a sudden twisting or bending force, such as in a car accident. Or it can happen after a simple awkward movement. In either case, muscle spasm often also happens. Muscle spasmmakes the pain worse. A healthcare provider makes a diagnosis of sciatica from your symptoms and a physical exam. Unless you had an injury from a car accident or fall, you usually won t have X-rays taken at this time. This is because the nerves and disks in your back can t be seen on an X-ray. If the provider sees signsof a compressed nerve, you will need to schedule an MRI scan as an outpatient. Signs of a compressed nerve include loss of strength in a leg. Most sciatica gets better with medicine, exercise, and physical therapy. If your symptoms continue after at least 3 months of medical treatment, you may need surgery or injections to your lower back. Home care Follow these tips when caring for yourself at home: You may need to stay in bed the first few days. But as soon as possible, begin sitting up or walking. This will help you avoid problems that come from staying in bed for long periods. When in bed, try to find a position that is comfortable. A firm mattress is best. Try lying flat onyour back with pillows under your knees. You can also try lying on your side with your knees bent up toward your chest and a pillow between your knees. Avoid sitting for long periods. This puts more stress on your lower back than standing or walking. Use heat from a hot shower, hot bath, or heating pad to help ease pain. Massage can also help. You can also try using an ice pack. You can make your own ice pack by putting ice cubes in a plastic bag. Wrap the bag in a thin towel. Try both heat and cold to see which works best. Use the method that feels best for 20 minutes several times a day. You may use acetaminophen or ibuprofen to ease pain, unless another pain medicine was prescribed. Note: If you have chronic liver or kidney disease, talk with your healthcare provider before taking these medicines. Also talk with your provider if you ve had a stomach ulcer or gastrointestinal bleeding. Use safe lifting methods. Don t lift anything heavier than 15 pounds until all of the pain is gone. Follow-up care Follow up with your healthcare provider, or as advised. You may need physical therapy or additionaltests. If X-rays were taken, a radiologist will look at them. You will be told of any new findings that may affect your care. When to seek medical advice Call your healthcare provider right away if any of these occur: Pain gets worse even after taking prescribed medicine Weakness or numbness in 1 or both legs or hips Numbness in your groin or genital area You can t control your bowel or bladder Fever Redness or swelling over your back or spine [phone] [employer]. [address] [place] [address], [place] [address]. All rights reserved. This information is not intended as a substitute for professional medical care. Always follow yourhealthcare professional's instructions. Additional Information VACCINATE! IT SAVES LIVES! Members of the community who have not yet received the COVID-19 vaccine and would like to receive it can visit one of [facility] vaccine clinics. There are many vaccine clinic locations within the [facility]. For locations and available times, please visit [email or web address]/. It is important to note that some COVID mobile vaccine clinics are held outdoors and may be canceled in rainy or stormy conditions. To learn more about pediatric vaccinations (ages 5-11), we invite you to visit the [facility] webpage. https://[email or web address]/[email or web address]-Lcckh-Ggnsypptjmx-Guejtkhbcv-Gnoqv-[email or web address] stions.htmlTo learn more about the COVID-19 vaccine, we invite you to visit the CDC website for a list of frequently asked questions. https://www.cdc.gov/coronavirus/2019-ncov/vaccines/faq.html [facility] Patient Portal Access Instructions: Stay connected with your healthcare team and access your personal medical information anytime with the [facility] Patient Portal. If you would like a full copy of your medical records please contact the [facility] Medical Records Department Tuesday through Tuesday between 8a.m. and 4:30p.m. Please follow the directions below to access the portal: 1.Access the email account you provided upon registration to the hospital.2.Look for an invitation email from [facility].3.Open the email and access the invitation link: Accept Invitation to [facility]4.Fill in the required valera to create your account. Sign into www.[employer] with your username and password that you created in the above steps to stay up to date. You can then view a summary of results, a summary of your visits, and the ability to download your summaries to your computer or send the information securely to a physician. Remember that your healthcare information is confidential, so carefully consider who you will allow to register on the [facility] Patient Portal for access to your information. You can also access the [facility] Patient Portal on the [employer]. Simply click on Health Records under [employer] and then click on the [employer] logo. HOW TO SAFELY DISPOSE OF PRESCRIPTION MEDICATIONS Please use one of the following methods to safely dispose of your unused medications. 1.Use a drug disposal kit: the drug disposal pouch allows you to safely discard your old and unuseddrugs. Ask your nurse to give you one when you are discharged.2.Visit a local take-back location: Many local pharmacies and police departments have programs that collect old and unwanted prescriptiondrugs. Call your local pharmacy or go to http://[employer].ePrep/8N0Bz8g to find one close to you.3.Make use of household items: Use cat litter or old coffee grounds to dispose medications if other options arenot available. Mix your drugs with these household products, seal them in an airtight container andthrow it into the garbage. Call [facility]: [phone] to be sure your drugs can be disposed of in this way. Some medicines may require a different approach.4.Never flush your medications down the toilet. IF YOU HAVE BEEN PRESCRIBED AN OPIOIDS FOR PAIN If you have been prescribed an opioid (such as hydrocodone, oxycodone or morphine), it is critical to understand the possible side effects and risks of opioid pain medications. Even when taken as directed, opioids can have several side effects including: Tolerance, meaning you might need to take more of a medication for the same pain relief. Nausea, vomiting and/or constipation. Sleepiness, dizziness, dry mouth, confusion, depression or itching. Physical dependence, meaning you have withdrawal symptoms when a medication is stopped ? this can develop within a few days. KNOW YOUR RESPONSIBILITIES It is important to know exactly how much and how often to take the opioid pain medications you are prescribed. Never take opioids in higher amounts or more often than prescribed. Do not combine opioids with alcohol or other drugs that cause drowsiness, such as benzodiazepines, also known as benzos,including diazepam and alprazolam, muscle relaxants or sleep aids. Never sell or share prescriptionopioids. This is illegal. Store opioids in a secure place and out of reach of others (including children, family, friends and visitors). The last page(s) of this document has been signed and retained as a CHART COPY Signatures Patient Education Materials Understanding Lumbar Radiculopathy Sciatica Medication Leaflets My discharge plan and instructions have been reviewed and explained to me and ARBEN Cary MICHELE L understand my current condition and have read and understand these discharge instructions. I have received a written copy of the plan/instructions. If I have questions, I am aware that I should contactmy doctor. Patient/Sample Puller Signature: Date/Time: Relationship to Patient: Witness Name/Signature: Date/Time: [facility]12-14-2021 HCoV 229E RNA SANDRA+non-probe Ql (Nph) Not Detected *NA* (06/09/21 12:00 PM)AH [employer]/Sero SSEvaluation + Plan note Future Appointments Appointment Date:05/12/2021 03:00:00 PM Scheduled Provider:NIGHAT ORTIZ APRN, CNP Location:[facility] Appointment Type:PC OV Follow Up Appointment Date:05/19/2021 01:30:00 PM Scheduled Provider: Location:[facility] Appointment Type:[place] Mammogram Screening Bilateral w/ Preet Appointment Date:08/27/2021 03:40:00 PM Scheduled Provider:AMANDA SHOEMAKER MD Location:[facility] Appointment Type:SO OV Follow Up Future Scheduled Tests Radiology* BD Bone Density DEXA Axial Skeleton 09/04/20 * XR Shoulder Minimum 2 Views Right 08/05/20 * MA Mammo Screening Bilateral w/ Preet 05/19/21 [facility] Evaluation + Plan note Future Appointments Appointment Date:08/13/2021 03:00:00 PM Scheduled Provider:NIGHAT ORTIZ APRN, CNP Location:[facility] Appointment Type:PC OV Follow Up Appointment Date:08/27/2021 03:40:00 PM Scheduled Provider:AMANDA SHOEMAKER MD Location:[facility] Appointment Type:SO OV Follow Up Appointment Date:11/10/2021 03:00:00 PM Scheduled Provider:NIGHAT ORTIZ APRN, CNP Location:[facility] Appointment Type:PC OV Follow Up Future Scheduled Tests Laboratory* A1C Hemoglobin 08/12/21 * A1C Hemoglobin 11/09/21 * Complete Blood Count 11/09/21 * Lipid Profile 11/09/21 * Vitamin D Level 11/09/21 * Complete Metabolic Panel 11/09/21 Radiology* BD Bone Density DEXA Axial Skeleton 09/04/20 * XR Shoulder Minimum 2 Views Right 08/05/20 [facility] Evaluation + Plan note Future Appointments Appointment Date:06/11/2021 01:00:00 PM Scheduled Provider:NIGHAT ORTIZ APRN, CNP Location:[facility] Appointment Type:Telehealth Appointment Date:08/13/2021 03:00:00 PM Scheduled Provider:NIGHAT ORTIZ APRN, CNP Location:[facility] Appointment Type:PC OV Follow Up Appointment Date:08/27/2021 03:40:00 PM Scheduled Provider:AMANDA SHOEMAKER MD Location:[facility] Appointment Type:SO OV Follow Up Appointment Date:11/10/2021 03:00:00 PM Scheduled Provider:NIGHAT ORTIZ APRN, CNP Location:[facility] Appointment Type:PC OV Follow Up Diagnostic Tests Pending * [facility] Send Out (Non-Blood Specimens) 06/09/21 Future Scheduled Tests Laboratory* A1C Hemoglobin 08/12/21 * A1C Hemoglobin 11/09/21 * Complete Blood Count 11/09/21 * Lipid Profile 11/09/21 * Vitamin D Level 11/09/21 * Complete Metabolic Panel 11/09/21 Radiology* BD Bone Density DEXA Axial Skeleton 09/04/20 * XR Shoulder Minimum 2 Views Right 08/05/20 [facility] Evaluation + Plan note Future Appointments Appointment Date:11/10/2021 03:00:00 PM Scheduled Provider:NIGHAT ORTIZ APRN, CNP Location:[facility] Appointment Type:PC OV Follow Up Appointment Date:03/25/2022 03:20:00 PM Scheduled Provider:AMANDA SHOEMAKER MD Location:[facility] Appointment Type:SO OV Future Scheduled Tests Laboratory* A1C Hemoglobin 08/12/21 * A1C Hemoglobin 11/09/21 * Lipid Profile 11/09/21 * Complete Metabolic Panel 11/09/21 [facility] [employer]uation + Plan note Future Appointments Appointment Date:05/13/2022 03:00:00 PM Scheduled Provider:NIGHAT ORTIZ APRN, CNP Location:[facility] Appointment Type:PC OV Follow Up Appointment Date:04/14/2023 11:30:00 AM Scheduled Provider:AMANDA SHOEMAKER MD Location:[facility] Appointment Type:SO OV Annual Visit Future Scheduled Tests Laboratory* A1C Hemoglobin 05/13/22 * A1C Hemoglobin 08/12/21 * A1C Hemoglobin 11/09/21 * Lipid Profile 05/13/22 * Lipid Profile 11/09/21 * Microalbumin Level Urine 05/13/22 * Vitamin D Level 05/13/22 * Complete Metabolic Panel 05/13/22 * Complete Metabolic Panel 11/09/21 Radiology* MA Mammo Screening Bilateral w/ Preet 04/15/22 [facility] Evaluation + Plan note Future Appointments Appointment Date:05/13/2022 03:00:00 PM Scheduled Provider:NIGHAT ORTIZ APRN - CHRISSY Location:[facility] Appointment Type:PC OV Follow Up Appointment Date:04/14/2023 11:30:00 AM Scheduled Provider:AMANDA SHOEMAKER MD Location:[facility] Appointment Type:SO OV Annual Visit Future Scheduled Tests Laboratory* A1C Hemoglobin 08/12/21 * A1C Hemoglobin 11/09/21 * Lipid Profile 11/09/21 * Complete Metabolic Panel 11/09/21 Radiology* MA Mammo Screening Bilateral w/ Preet 04/15/22 [facility] evaluation + Plan note Future Appointments Appointment Date:11/11/2022 03:00:00 PM Scheduled Provider:NIGHAT ORTIZ APRN, CNP Location:[facility] Appointment Type:PC OV Follow Up Appointment Date:04/14/2023 11:30:00 AM Scheduled Provider:AMANDA SHOEMAKER MD Location:[facility] Appointment Type:SO OV Annual Visit Future Scheduled Tests Laboratory* A1C Hemoglobin 11/09/21 * Lipid Profile 11/09/21 * Microalbumin Level Urine 11/10/22 * Complete Metabolic Panel 11/09/21 Radiology* MA Mammo Screening Bilateral w/ Preet 04/15/22 [facility] Evaluation + Plan note Future Appointments Appointment Date:02/11/2023 02:20:00 PM Scheduled Provider:NIGHAT ORTIZ APRN - CHRISSY Location:[facility] Appointment Type:PC OV Appointment Date:04/14/2023 11:30:00 AM Scheduled Provider:AMANDA SHOEMAKER MD Location:[facility] Appointment Type:SO OV Annual Visit Appointment Date:05/12/2023 03:00:00 PM Scheduled Provider:NIGHAT ORTIZ APRN - CHRISSY Location:[facility] Appointment Type:PC OV Follow Up Future Scheduled Tests Laboratory* A1C Hemoglobin 05/14/23 * Lipid Profile 05/14/23 * Albumin/Creatinine Ratio, Random Urine 05/14/23 * Microalbumin Level Urine 11/10/22 * Vitamin D Level 05/14/23 * Complete Metabolic Panel 05/14/23 Radiology* MA Mammo Screening Bilateral w/ Preet 04/15/22 [facility] Evaluation + Plan note Future Appointments Appointment Date:02/18/2023 10:40:00 AM Scheduled Provider:NIGHAT ORTIZ APRN - FURNITURE RENTAL CONSULTANT Location:[facility] Appointment Type:PC OV Follow Up Appointment Date:04/14/2023 11:30:00 AM Scheduled Provider:AMANDA SHOEMAKER MD Location:[facility] Appointment Type:SO OV Annual Visit Appointment Date:05/12/2023 03:00:00 PM Scheduled Provider:NIGHAT ORTIZ BLUE LINE TRIMMER - FURNITURE RENTAL CONSULTANT Location:[facility] Appointment Type:PC OV Follow Up Future Scheduled Tests Laboratory* A1C Hemoglobin 05/14/23 * Lipid Profile 05/14/23 * Albumin/Creatinine Ratio, Random Urine 05/14/23 * Microalbumin Level Urine 11/10/22 * Vitamin D Level 05/14/23 * Complete Metabolic Panel 05/14/23 Radiology* MA Mammo Screening Bilateral w/ Preet 04/15/22 [facility] Evaluation + Plan note Future Appointments Appointment Date:04/14/2023 11:30:00 AM Scheduled Provider:AMANDA SHOEMAKER MD Location:[facility] Appointment Type:SO OV Annual Visit Appointment Date:05/12/2023 03:00:00 PM Scheduled Provider:NIGHAT ORTIZ APRN, CNP Location:[facility] Appointment Type:PC OV Follow Up Future Scheduled Tests Laboratory* A1C Hemoglobin 05/14/23 * Lipid Profile 05/14/23 * Albumin/Creatinine Ratio, Random Urine 05/14/23 * Microalbumin Level Urine 11/10/22 * Vitamin D Level 05/14/23 * Complete Metabolic Panel 05/14/23 Radiology* MA Mammo Screening Bilateral w/ Preet 04/15/22 [facility] Evaluation + Plan note Future Appointments Appointment Date:05/12/2023 03:00:00 PM Scheduled Provider:NIGHAT ORTIZ APRN - CHRISSY Location:[facility] Appointment Type:PC OV Follow Up Future Scheduled Tests Laboratory* Pathology Client Development Director Request 04/13/23 * Cancer Antigen 125 04/13/23 * Magnesium Level 04/13/23 * Phosphorus Level 04/13/23 * A1C Hemoglobin 05/14/23 * Complete Blood Count 04/13/23 * Lipid Profile 05/14/23 * Albumin/Creatinine Ratio, Random Urine 05/14/23 * Microalbumin Level Urine 11/10/22 * Vitamin D Level 05/14/23 * Complete Metabolic Panel 05/14/23 * Complete Metabolic Panel 04/13/23 Radiology* MA Mammo Screening Bilateral w/ Preet 04/15/22 * MA Mammo Screening Bilateral w/ Preet 04/13/23 * BD Bone Density DEXA Axial Skeleton 04/13/23 * CT Abdomen and Pelvis w/ contrast 04/13/23 [facility] Evaluation + Plan note Future Appointments Appointment Date:05/12/2023 03:00:00 PM Scheduled Provider:NIGHAT ORTIZ APRN, CNP Location:[facility] Appointment Type:PC OV Follow Up Future Scheduled Tests Laboratory* Pathology Client Development Director Request 04/13/23 * Albumin/Creatinine Ratio, Random Urine 05/14/23 * Microalbumin Level Urine 11/10/22 * Complete Metabolic Panel 04/13/23 Radiology* MA Mammo Screening Bilateral w/ Preet 04/15/22 * MA Mammo Screening Bilateral w/ Preet 04/13/23 * BD Bone Density DEXA Axial Skeleton 04/13/23 * CT Abdomen and Pelvis w/ contrast 04/13/23 [facility] Evaluation + Plan note Future Appointments Appointment Date:05/09/2023 09:45:00 AM Scheduled Provider: Location:[facility] Appointment Type:MA Mammogram Screening Bilateral w/ Preet Appointment Date:05/09/2023 10:30:00 AM Scheduled Provider: Location:[facility] Appointment Type:BD Bone Density DEXA Axial Skeleton Appointment Date:05/12/2023 03:00:00 PM Scheduled Provider:NIGHAT ORTIZ APRN, CNP Location:[facility] Appointment Type:PC OV Follow Up Future Scheduled Tests Laboratory* Albumin/Creatinine Ratio, Random Urine 05/14/23 * Microalbumin Level Urine 11/10/22 * Complete Metabolic Panel 04/13/23 Radiology* MA Mammo Screening Bilateral w/ Preet 05/09/23 * BD Bone Density DEXA Axial Skeleton 05/09/23 [facility] Evaluation + Plan note Future Appointments Appointment Date:05/12/2023 03:00:00 PM Scheduled Provider:NIGHAT ORTIZ APRN, CNP Location:[facility] Appointment Type:PC OV Follow Up Future Scheduled Tests Laboratory* Albumin/Creatinine Ratio, Random Urine 05/14/23 * Microalbumin Level Urine 11/10/22 * Complete Metabolic Panel 04/13/23 [facility] Evaluation + Plan note Future Appointments Appointment Date:05/30/2023 01:40:00 PM Scheduled Provider:NIGHAT ORTIZ APRN, CNP Location:[facility] Appointment Type:PC OV Discuss Test Results Appointment Date:08/18/2023 08:20:00 AM Scheduled Provider:NIGHAT ORTIZ APRN, CNP Location:[facility] Appointment Type:PC OV Follow Up Appointment Date:11/10/2023 09:00:00 AM Scheduled Provider:NIGHAT ORTIZ APRN, CNP Location:[facility] Appointment Type:PC OV Follow Up Future Scheduled Tests Laboratory* A1C Hemoglobin 11/10/23 * Complete Blood Count 11/10/23 * Lipid Profile 11/10/23 * Albumin/Creatinine Ratio, Random Urine 11/10/23 * Albumin/Creatinine Ratio, Random Urine 05/14/23 * Microalbumin Level Urine 11/10/22 * Vitamin D Level 11/10/23 * Complete Metabolic Panel 11/10/23 * Complete Metabolic Panel 04/13/23 [facility] Hospital course Narrative No data available for this section [facility] Hospital Discharge instructions No data available for this section [facility] Progress note No data available for this section [facility] Summary Purpose Family History No Family History Records FoundNo Family History Records Found No data available for this section No data available for this section No data available for this section No data available for this section No data available for this section No data available for this section No data available for this section No data available for this section No data available for this section No Family History Records Found Advance Directives No Advanced Directives Records FoundDocuments on File Type Date Recorded Patient Sample Puller Expl anation Advance Directives and Living Will Power of Residential Mental Health Worker Latest Code Status on File Code Status Date Activated Date Inactivated Comments Full Code 02/05/2020 3:31 AM Full Code 04/04/2017 5:04 AM 04/06/2017 4:17 PM History of Present Illness * Darrel Carpenter, BLUE LINE TRIMMER - FURNITURE RENTAL CONSULTANT - 02/05/2020 3:58 PM EDT ICU TRANSFER CHECKLIST Transfer Med Reconciliation (resume home meds if able, convert to PO if able) Complete Antibiotics (name, indication, duration, convert to PO if able) Yes,Bactrim. supposed to be on one week starting today per OP regimen Steroid (indication, duration, convert to PO if able) None Anticipated [place] Medications (ICU initiated) or Dose Changes and Indication No Permanently Discontinued Home Medications and Reason for medication contraindication No Pollard Catheter (please remove if able) No Central Line (please remove if able) No Transfer Discussed with: Dr. Goodman/HONORIO If additional questions for ICU team within 24 hours of ICU transfer, page [phone] for clarifications. * Luzmaria Siddiqui RD, LD - 02/05/2020 3:22 PM EDT Comprehensive Nutrition Assessment Type and Reason for Visit: Initial Nutrition Recommendations/Plan: 1. Continue with CHO controlled (4 CHO/meal) and initiate Diabetic Oral Supplement (Ensure HP) withlunch and dinner. 2. Monitor p.o/ONS intake/nutritional status. Nutrition Assessment: Pt with PMH significant for type II DM, previous hysterectomy and endometrialcancer 2012 (bilateral oophorectomy and resection of retroperitoneal mass on 12/28/19), COPD, major depression with prior suicidal ideation requiring inpatient therapy, PTSD, panic disorder, anxiety, personality disorder, migraine, GERD, HLD, learning disability, migraines, PTSD who is a direct transfer from [facility] for hypotension. 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 Pt agrees to try Ensure HP (chocolate)to provide more kcals/protein. Son at bedside. Malnutrition Assessment: Malnutrition Status: Insufficient data Context: Acute Illness Findings of the 6 clinical characteristics of malnutrition: Energy Intake: (<50% meals x 1-2 days COMMUNITY CENTER WORKER) Weight Loss: No significant weight loss Body Fat Loss: No significant body fat loss Muscle Mass Loss: No significant muscle mass loss Fluid Accumulation: No significant fluid accumulation Cda Teacher Strength: Not Performed Estimated Daily Nutrient Needs: Energy (kcal): 25-30 kcals/kg IBW (45.4kgs) = 9335-1566 kcals/day; Weight Used for Energy Requirements: [place] Protein (g): 1.3-1.5g protein/kg IBW (45.4kgs) = 59-68g protein/day; Weight Used for Protein Requirements: [place] Fluid (ml/day): ; Weight Used for Fluid Requirements: [place] Nutrition Related Findings: +BS, no edema, +N Wounds: (Left nose laceration) Current Nutrition Therapies: DIET CARB CONTROL; Carb Control: 4 carb choices (60 gms)/meal Anthropometric Measures: Height: 5' (152.4 cm) Current Body Weight: 200 lb (90.7 kg)(02/05/20) Admission Body Weight: Usual Body Weight: [place] Body Weight: 100 lbs; % [place] Body Weight 200 % BMI: 39.1 Adjusted Body Weight: ; Adjusted BMI: BMI Categories: Obese Class 2 (BMI 35.0 -39.9) Nutrition Diagnosis: Predicted inadequate energy intake related to altered GI function as evidenced by intake 26-50% Nutrition Interventions: Food and/or Nutrient Delivery: Continue Current Diet Nutrition Education/Counseling: Education not indicated Coordination of Nutrition Care: Continued Inpatient Monitoring Goals: Pt consumes >50-75% meals/ONS consistently. Nutrition Monitoring and Evaluation: Behavioral-Environmental Outcomes: Food/Nutrient Intake Outcomes: Food and Nutrient Intake, Supplement Intake, Diet Advancement/Tolerance Physical Signs/Symptoms Outcomes: Biochemical Data, Chewing or Swallowing, GI Status, Hemodynamic Status, Nutrition Focused Physical Findings, Skin, Weight Discharge Planning: Too soon to determine Contact: Pager #[phone] * Chad Pike, PT - 02/05/2020 1:36 PM EDT Physical Therapy Facility/Department: [facility] ICU T2 Initial Assessment NAME: Kingsley Theodore : 1975 Date of Service: 02/05/2020 Discharge Recommendations: Home with assist PRN PT Equipment Recommendations Other: tbd Assessment Body structures, Functions, Activity limitations: Decreased endurance;Decreased balance;Decreased functional mobility ;Decreased ADL status Assessment: Ambulated functional distance, no overt LOB but needed fww for stability at this time. Goog prognosis to improve funciton, anticipate discharge to home with assist as needed. Treatment Diagnosis: weakness Prognosis: Fair Decision Making: Low Complexity REQUIRES PT FOLLOW UP: Yes Activity Tolerance Activity Tolerance: Patient Tolerated treatment well Patient Diagnosis(es): There were no encounter diagnoses. has a past medical history of Anemia, Anxiety, COPD (chronic obstructive pulmonary disease) (HCC), Depression, Endometrial cancer (HCC), Essential hypertension, Former smoker, GERD (gastroesophageal reflux disease), History of vitamin D deficiency, HLD (hyperlipidemia), Hyperlipidemia, Hypertension, Migraine, CORRINE (obstructive sleep apnea), Pelvic mass, Psychiatric problem, PTSD (post-traumatic stress disorder), and Type II diabetes mellitus (HCC). has a past surgical history that includes Cholecystectomy; Hysterectomy; and salpingectomy. Restrictions Restrictions/Precautions Restrictions/Precautions: Fall Risk Required Braces or Orthoses?: No Vision/Hearing Vision: Within Functional Limits Hearing: Within functional limits Subjective General Chart Reviewed: Yes Patient assessed for rehabilitation services?: Yes Additional Pertinent Hx: Suicidal ideation Family / Caregiver Present: No Diagnosis: dizziness Follows Commands: Within Functional Limits General Comment Comments: dizziness, fall Subjective Subjective: Pt. sitting on chair, agree with PT treatment. Pain Screening Patient Currently in Pain: Yes Pain Assessment Pain Assessment: Faces [place] Pain Rating: Hurts a little bit Pain Type: Acute pain Pain Location: Head Functional Pain Assessment: Prevents or interferes some active activities and ADLs Non-Pharmaceutical Pain Intervention(s): Ambulation/Increased Activity Vital Signs Patient Currently in Pain: Yes Orientation Orientation Overall Orientation Status: Within Functional Limits Social/Functional History Social/Functional History Lives With: Alone Type of Home: Apartment Home Layout: One level ADL Assistance: Independent Homemaking Assistance: Independent Ambulation Assistance: Independent Transfer Assistance: Independent Active Materials Handling Coordinator: Yes Occupation: On disability Cognition Cognition Overall Cognitive Status: WFL Objective Observation/Palpation Posture: Fair AROM RLE (degrees) RLE AROM: WFL AROM LLE (degrees) LLE AROM : WFL Strength RLE Strength RLE: WNL Strength LLE Strength LLE: WNL Tone RLE RLE Tone: Normotonic Tone LLE LLE Tone: Normotonic Motor Control Gross Motor?: WNL Sensation Overall Sensation Status: WNL Bed mobility Comment: NT pt sitting on chair Transfers Sit to Stand: Modified independent Stand to sit: Modified independent Ambulation Ambulation?: Yes WB Status: no restriction More Ambulation?: Yes Ambulation 1 Surface: level tile Device: No Device Assistance: Contact guard assistance Gait Deviations: Slow Heidy Distance: 20 ft Ambulation 2 Surface - 2: level tile Device 2: Rolling Walker Assistance 2: Supervision Gait Deviations: Slow Heidy Distance: 150 ft Stairs/Curb Stairs?: No Balance Sitting - Static: Good Sitting - Dynamic: Good Standing - Static: Good Standing - Dynamic: Fair;+ Plan Plan Times per week: 3-5x/wk Plan weeks: 2 Current Treatment Recommendations: Strengthening, Transfer Training, Balance Training, Gait Training, Functional Mobility Training, Stair training Safety Devices Type of devices: Call light within reach, Gait belt, Left in chair(N95 and facesheild) Restraints Initially in place: No G-Code OutComes Score AM-PAC Score AM-PAC Inpatient Mobility without Stair Climbing Raw Score : 20 (02/05/201335) AM-PAC Inpatient without Stair Climbing T-Scale Score : 60.57 (02/05/201335) Mobility Inpatient CMS 0-100% Score: 0 (02/05/201335) Mobility Inpatient without Stair CMS G-Code Modifier : CH (02/05/201335) Goals Short term goals Time Frame for Short term goals: 2 weeks Short term goal 1: bed mobility independent Short term goal 2: transfers modified independent Short term goal 3: ambulatt 200 ft, independent Patient Goals Patient goals : To go home. Therapy Time Individual Concurrent Group Co-treatment Time In 1230 Time Out 1245 Minutes 15 Chad Pike, PT,GCS * Chad Pike PT - 02/05/2020 11:27 AM EDT Physical Therapy Attempt Note PT eval and treatment attempted. Pt having ultrasound at bedside. Will re- attempt as able. Chad Pike PT, GCS documented in this encounter Assessments Diagnosis Hypotension Hypotension, unspecified Abdominal wall cellulitis Cellulitis and abscess of trunk Hospital Course Note Hospitalist Discharge Summar ashley Theodore : 1975 ADMIT DATE: 02/05/2020 DISCHARGE DATE: 02/06/2020 PRIMARY CARE PHYSICIAN: No primary care provider on file. CODE STATUS: Full Code DISCHARGE DIAGNOSES: Active Problems: Hypotension Abdominal wall cellulitis Resolved Problems: * No resolved hospital problems. * DM 2 with hyperglycemia HOSPITAL COURSE: 44 yo woman with multiple medical problems (major depression with prior suicidal ideation requiring inpatient therapy, ptsd, panic disorder, anxiety, personality disorder, migraine, dm2, copd, corrine, htn, hlp, endometrial cancer status post total laparoscopic hysterectomy with bilateral salpingectomy in 2013, gerd, splenomegaly, vitamin D deficiency, former smoker) recently at [facility] for exploratory laparotomy, bilateral oophorectomy, resection of pelvic mass on 12/28/19 allegedly benign, but hospital course complicated by wound infection requiring antibiotics, which she was still taking, presented to [facility] (more content not included)... Additional Source Comments INFORMATION SOURCE (unrecogn ized section and content) DATE CREATED AUTHOR AUTHOR'S ORGANIZ ATION 03/12/2020 [facility] DATE CREATED AUTHOR AUTHOR'S ORGANIZ ATION 06/15/2023 [facility] ([place]) Reason for Visit (unrecogniz ed section and content) Care Team (unrecognized sect ion and content) Personnel Name: NIGHAT ORTIZ APRN, CNP Address: [address] [place] [address] Name: Evens Garcia PT Care Team Personnel Name: Evens Garcia PT Position: P3 Scheduling - Project Coordinator Advanced Member Role: Other Name: AMANDA SHOEMAKER MD Position: P4 Oncology Provider Member Role: Gynecologic Oncologist Address: Address: [address] [place] [address] [address] Name: NIGHAT ORTIZ APRN, CNP Position: P4 Advanced Security Threat Analyst Member Role: Primary Care Physician Address: Address: [address] [place] [address] Care Team Related Persons Name: GABRIELA KEEN Care Team Personnel Name: Evens Garcia PT Position: P3 Scheduling - Project Coordinator Advanced Member Role: Other Name: AMANDA SHOEMAKER MD Position: P4 Oncology Provider Member Role: Gynecologic Oncologist Address: Address: [address] [place] [address] [place] [address]- Name: NIGHAT ORTIZ APRN, CNP Position: P4 Advanced Security Threat Analyst Member Role: Primary Care Physician Address: Address: [address] [place] [address] Name: JUAQUIN FERNANDES DO Position: ED Physician Member Role: ED Physician Address: Address: [facility] [address] [place] [address]- [place] Name: Marnie Dao RN Position: AO RN Member Role: RN Care Team Related Persons Name: NATTY STRAUSS Name: GABRIELA KEEN Care Team Personnel Name: Radha, Run Boat Operator Kate PT Position: P3 Scheduling - Project Coordinator Advanced Member Role: Other Name: AMANDA SHOEMAKER MD Position: P4 Oncology Provider Member Role: Gynecologic Oncologist Address: Address: [address] [place] [address] [place] [address]- Name: NIGHAT ORTIZ BLUE LINE TRIMMER - FURNITURE RENTAL CONSULTANT Position: P4 Advanced Security Threat Analyst Member Role: Primary Care Physician Address: Address: [address] [place] [address] Care Team Related Persons Name: NATTY STRAUSS Name: GABRIELA KEEN Care Team Personnel Name: Radha Run Boat Operator Kate PT Position: P3 Scheduling - Project Coordinator Advanced Member Role: Other Name: AMANDA SHOEMAKER MD Position: P4 Oncology Provider Member Role: Gynecologic Oncologist Address: Address: [address] [place] [address] [place] [address]- Name: NIGHAT ORTIZ BLUE LINE TRIMMER - FURNITURE RENTAL CONSULTANT Position: P4 Advanced Security Threat Analyst Member Role: Primary Care Physician Address: Address: [address] [place] [address] Name: CUCO HUNT DO Position: Resident Member Role: Resident Address: Address: [address] [place] [address] [place] [address]- Name: BANDAR PEDRAZA DO Position: ED Physician Member Role: ED Physician Address: Address: [address] [place] [address] [place] [address]- Name: CALI Haile Position: AO RN Member Role: ED RN Care Team Related Persons Name: NATTY STRAUSS Name: GABRIELA KEEN Care Team Personnel Name: Radha, Run Boat Operator Kate PT Position: P3 Scheduling - Project Coordinator Advanced Member Role: Other Name: NIGHAT ORTIZ BLUE LINE TRIMMER - FURNITURE RENTAL CONSULTANT Position: P4 Advanced Security Threat Analyst Member Role: Primary Care Physician Address: Address: [address] [place] [address] Name: ANTONY GO BLUE LINE TRIMMER-FURNITURE RENTAL CONSULTANT Position: P4 Oncology Provider Member Role: Gynecologic Oncologist Address: Address: [address] [place] [address] [place] [address]- Care Team Related Persons Name: NATTY STRAUSS Name: OSMANI GABRIELA Care Team Personnel Name: Radha, Run Boat Operator Kate PT Position: P3 Scheduling - Project Coordinator Advanced Member Role: Other Name: NIGHAT ORTIZ BLUE LINE TRIMMER - FURNITURE RENTAL CONSULTANT Position: P4 Advanced Security Threat Analyst Member Role: Primary Care Physician Address: Address: [address] [place] [phone]- [place] Name: ANTONY GO BLUE LINE TRIMMER-FURNITURE RENTAL CONSULTANT Position: P4 Oncology Provider Member Role: Gynecologic Oncologist Address: Address: [address] [place] [address] Gynecologic Oncology [place] [id number]- Care Team Related Persons Name: NATTY STRAUSS Name: OSMANI GABRIELA Care Team Personnel Name: Radha Run Boat Operator Kate PT Position: P3 Scheduling - Project Coordinator Advanced Member Role: Other Name: NIGHAT ORTIZ BLUE LINE TRIMMER - FURNITURE RENTAL CONSULTANT Position: P4 Advanced Security Threat Analyst Member Role: Primary Care Physician Address: Address: [address] [place] [phone] [place] [address] Name: ANTONY GO BLUE LINE TRIMMER-FURNITURE RENTAL CONSULTANT Position: P4 Oncology Provider Member Role: Gynecologic Oncologist Address: Address: [address] [place] [address] [place] [address]- Care Team Related Persons Name: NATTY STRAUSS Name: LUIS KEENHER Care Team Personnel Name: Radha Run Boat Operator Kate PT Position: P3 Scheduling - Project Coordinator Advanced Member Role: Other Name: NIGHAT ORTIZ BLUE LINE TRIMMER - FURNITURE RENTAL CONSULTANT Position: P4 Advanced Security Threat Analyst Member Role: Primary Care Physician Address: Address: [address] [place] [phone] [place] [address] Name: ANTONY GO BLUE LINE TRIMMER-FURNITURE RENTAL CONSULTANT Position: P4 Oncology Provider Member Role: Gynecologic Oncologist Address: Address: [address] [place] [address] [place] [address]- Care Team Related Persons Name: NATTY STRAUSS Name: OSMANI GABRIELA Care Team Personnel Name: Evens Garcia Clerk Kate PT Position: P3 Scheduling - Project Coordinator Advanced Member Role: Other Name: NIGHAT ORTIZ APRN FURNITURE RENTAL CONSULTANT Position: P4 Advanced Security Threat Analyst Member Role: Primary Care Physician Address: Address: [address] [place] [address] Name: ANTONY GO Position: P4 Oncology Provider Member Role: Gynecologic Oncologist Address: Address: [address] [place] [address] Gy[address] On[address] Care Team Related Persons Name: NATTY STRAUSS Name: GABRIELA KEEN Care Team Personnel Name: Evens Garcia Clerk Kate PT Position: P3 Scheduling - Project Coordinator Advanced Member Role: Other Name: NIGHAT ORTIZ APRN - FURNITURE RENTAL CONSULTANT Position: P4 Advanced Security Threat Analyst Member Role: Primary Care Physician Address: Address: [address] [place] [address] Name: ANTONY GOFURNITURE RENTAL CONSULTANT Position: P4 Oncology Provider Member Role: Gynecologic Oncologist Address: Address: [address] [place] [address] [address] Care Team Related Persons Name: GABRIELA KEEN Name: JOSE THEODORE Address: Home [address] [place] [phone] Address: Temporary [address] [place] [phone] Care Team (unrecognized sect ion and content) Care Team Personnel Name: Evesn Garciarhenry Love PT Position: P3 Scheduling - Project Coordinator Advanced Member Role: Other Name: AMANDA SHOEMAKER MD Position: P4 Oncology Provider Member Role: Gynecologic Oncologist Address: Address: [address] [place] [address] [address] Name: NIGHAT ORTIZ APRN FURNITURE RENTAL CONSULTANT Position: P4 Advanced Practice Nurse Med Service: Employed Provider Member Role: Primary Care Physician Address: Address: [address] [place] [address] Care Team Related Persons Name: GABRIELA KEEN Care Team Personnel Name: Evens Garciarhenry Love PT Position: P3 Scheduling - Project Coordinator Advanced Member Role: Other Name: AMANDA SHOEMAKER MD Position: P4 Oncology Provider Member Role: Gynecologic Oncologist Address: Address: [address] [place] [address] [place] [address]- Name: NIGHAT ORTIZ APRN - FURNITURE RENTAL CONSULTANT Position: P4 Advanced Practice Nurse Member Role: Primary Care Physician Address: Address: [address] [facility] [place] [address]- Care Team Related Persons Name: OSMANI GABRIELA FOR RECORDS PERTAINING TO PATIENTS WHO ARE OR HAVE BEEN ENROLLED IN A CHEMICAL DEPENDENCY/SUBSTANCEABUSE PROGRAM, SOME INFORMATION MAY BE OMITTED. This clinical summary was aggregated from multiple sources. Caution should be exercised in using it in the provision of clinical care. This summary normalizes information from multiple sources, and as a consequence, information in this document may materially change the coding, format and clinical context of patient data. In addition, data may be omitted in some cases. CLINICAL DECISIONS SHOULD BE BASED ON THE PRIMARY CLINICAL RECORDS. [facility]. provides no warranty or guarantee of the accuracy or completeness of information in this document.
== END 2023-06-27 15:37 | disposition home or self-care (01) ==
PROVIDERS: Emergency Provider Emergency Medicine; PCP Nurse Practitioner Family; Visit Provider Emergency Medicine
DX: B34.9 Viral infection, unspecified (principal); J44.9 Chronic obstructive pulmonary disease, unspecified; E11.9 Type 2 diabetes mellitus without complications; Z79.4 Long term (current) use of insulin; Z87.891 Personal history of nicotine dependence; I10 Essential (primary) hypertension; Z79.899 Other long term (current) drug therapy; F41.8 Other specified anxiety disorders; Z79.84 Long term (current) use of oral hypoglycemic drugs; Z90.710 Acquired absence of both cervix and uterus
CPT/HCPCS: 71046; 87428; 99282